=== PATIENT | male | born 1950 | race Two or more races ===

== ENCOUNTER 2018-04-06 11:20 | Emergency (ER) | payer MEDICARE, MEDICAID ==
[~2018-04-06] VITALS: Ht 160 cm; Wt 63.5 kg
[2018-04-06] MEDS ORDERED: SODIUM CHLORIDE 0.9% 1,000 ML IV ONE ×2 (11:35→13:07)
[2018-04-06] MEDS ORDERED: ALBUTEROL SULF 2.5 MG/0.5ML(0.5%) NEB SOLN NEB ONE (11:45)
[2018-04-06] MEDS ORDERED: IPRATROPIUM BROM 0.5 MG/2.5ML INH SOL NEB ONE (11:45)
[2018-04-06 12:18] LABS: Basophils # (auto) 0 uL; Eosinophils # (auto) 0 uL; Lymphocytes # (auto) 0.3 uL; Mean Corpuscular Hgb Conc. 33.3 g/dL (32.0-36.0); Monocytes # (auto) 0.4 uL; Red Cell Distribution Width 15.4 % (11.8-14.3)
[2018-04-06 12:19] LABS: Basophils % (auto) 0.4 % (0.0-2.0); Hematocrit 30.7 % (41.0-53.0); Hemoglobin 10.2 g/dL (13.5-17.5); Lymphocytes % (auto) 4.3 % (10.0-50.0); Mean Corpuscular Hemoglobin 28.4 pg (28.0-32.0); Mean Corpuscular Volume 85.4 fL (80.0-100.0); Monocytes % (auto) 5.5 % (0.0-12.0); Neutrophils # (auto) 6.4 uL; Neutrophils % (auto) 89.8 % (37.0-80.0); Platelet Count (auto) 723 10^3/uL (140-450); Red Blood Cells 3.59 10^6/uL (4.5-5.90); White Blood Cell 7.1 10^3/uL (4.4-10.8)
[2018-04-06 12:31] LABS: Albumin 2.7 g/dL (3.4-5.0); Anion Gap 7 (5-15); Blood Urea Nitrogen 25 mg/dL (7-18); Carbon Dioxide 24 mmol/L (21-32); Chloride 95 mmol/L (98-107); Glucose 158 mg/dL (74-106); Potassium 3.5 mmol/L (3.5-5.1); Sodium 126 mmol/L (136-145)
[2018-04-06 12:38] LABS: Alanine Aminotransferase 61 U/L (16-61); Alkaline Phosphatase 115 U/L (45-117); Aspartate Aminotransferase 96 U/L (15-37); BUN/Creatinine Ratio 22.9; Bilirubin, Total 0.4 mg/dL (0.2-1.0); GFR African American 87 mL/min; GFR Non-African American 72 mL/min; Total Protein 7.6 g/dL (6.4-8.2)
[2018-04-06 13:20] LABS: INR 0.96 (0.9-1.15); Partial Thromboplastin Time 32.9 sec (23.78-33.04); Prothrombin Time 10.3 sec (9.27-12.13)
[2018-04-06 16:05] VITALS: BP 111/71
[2018-04-06 16:23] LABS: Urine Bacteria FEW /hpf (None Seen); Urine Blood Negative /uL (Negative); Urine Hyaline Cast MOD /lpf (0 - 2); Urine Mucus FEW (None Seen); Urine Specific Gravity 1.019 (1.001-1.035); Urine WBC 9 /hpf (0 - 3)
== END 2018-04-06 16:29 | disposition home or self-care (01) ==
LOC: ER 11:20
DX: E87.1 Hypo-osmolality and hyponatremia (principal); J40 Bronchitis, not specified as acute or chronic; I10 Essential (primary) hypertension; Z93.3 Colostomy status
CPT/HCPCS: 36415; 71045; 74176; 80053; 81001; 82962; 83880; 84484; 85025; 85610; 85730; 93005; 94640; 99284; J7611; J7644

== ENCOUNTER 2018-04-27 13:18 | Emergency (ER) | payer MEDICARE, MEDICAID ==
[~2018-04-27] VITALS: Ht 154.9 cm; Wt 59.0 kg
[2018-04-27 13:42] VITALS: BP 104/59
== END 2018-04-27 15:07 | disposition home or self-care (01) ==
LOC: ER 13:21
DX: S30.92XD Unspecified superficial injury of abdominal wall, subsequent encounter (principal); I10 Essential (primary) hypertension; X58.XXXD Exposure to other specified factors, subsequent encounter

== ENCOUNTER 2018-05-07 16:59 | Emergency (ER) | payer MEDICARE, MEDICAID ==
[~2018-05-07] VITALS: Ht 154.9 cm; Wt 57.3 kg
[2018-05-07] MEDS ORDERED: ACETAMINOPHEN 325 MG TAB PO ONE (18:00)
[2018-05-07 19:07] LABS: Urine Bacteria NONE SEEN /hpf (None Seen); Urine Blood Negative /uL (Negative); Urine Hyaline Cast FEW /lpf (0 - 2); Urine Mucus FEW (None Seen); Urine Specific Gravity 1.019 (1.001-1.035); Urine WBC 5 /hpf (0 - 3)
[2018-05-07 19:41] LABS: Basophils # (auto) 0 uL; Basophils % (auto) 0.3 % (0.0-2.0); Eosinophils # (auto) 0 uL; Lymphocytes # (auto) 0.6 uL; Monocytes # (auto) 0.7 uL
[2018-05-07 19:43] LABS: Hematocrit 30.1 % (41.0-53.0); Lymphocytes % (auto) 4.2 % (10.0-50.0); Mean Corpuscular Hemoglobin 26.4 pg (28.0-32.0); Mean Corpuscular Hgb Conc. 33.3 g/dL (32.0-36.0); Mean Corpuscular Volume 79.2 fL (80.0-100.0); Monocytes % (auto) 4.9 % (0.0-12.0); Neutrophils # (auto) 13.1 uL; Neutrophils % (auto) 90.6 % (37.0-80.0); Red Cell Distribution Width 19.1 % (11.8-14.3); White Blood Cell 14.5 10^3/uL (4.4-10.8)
[2018-05-07 19:53] LABS: Platelet Count (auto) 828 10^3/uL (140-450)
[2018-05-07 19:57] LABS: Albumin 2.9 g/dL (3.4-5.0); Anion Gap 11 (5-15); Blood Urea Nitrogen 10 mg/dL (7-18); Calcium 8.6 mg/dL (8.5-10.1); Carbon Dioxide 24 mmol/L (21-32); Chloride 97 mmol/L (98-107); Glucose 180 mg/dL (74-106); Potassium 3.5 mmol/L (3.5-5.1); Sodium 132 mmol/L (136-145)
[2018-05-07 20:00] LABS: Alanine Aminotransferase 20 U/L (16-61); Alkaline Phosphatase 122 U/L (45-117); Aspartate Aminotransferase 13 U/L (15-37); BUN/Creatinine Ratio 10.4; Bilirubin, Total 0.5 mg/dL (0.2-1.0); GFR African American > 60 mL/min; GFR Non-African American > 60 mL/min; Total Protein 7.7 g/dL (6.4-8.2)
[2018-05-07] MEDS ORDERED: metroNIDAZOLE 500MG/100ML 100 ML IV ONE (20:15)
[2018-05-07] MEDS ORDERED: cefTRIAXone 1GM/50ML D5W 50 ML IV ONE (20:15)
[2018-05-07] MEDS ORDERED: SODIUM CHLORIDE 0.9% 1,000 ML IV ONE ×2 (20:15→22:30)
[2018-05-07] MEDS ORDERED: VANCOMYCIN 1GM/250ML 250 ML IV ONE (22:30)
[2018-05-07] MEDS ORDERED: LORazepam 2MG/ML-1ML VIAL ONE (22:50)
[2018-05-07] MEDS ORDERED: LIDOCAINE 2% (LOCAL ANESTH.) PF 5ml SDV ONE ×2 (22:55→23:14)
[2018-05-07] MEDS ORDERED: LIDOCAINE 2%HCL (LOCAL ANESTH.) INJ 10ml MDV IJ ONE ×3 (23:00→23:15)
[2018-05-07] MEDS ORDERED: LORazepam 2MG/ML-1ML VIAL IV ONE (23:00)
[2018-05-08 01:21] VITALS: BP 124/59
== END 2018-05-08 01:38 | disposition home or self-care (01) ==
LOC: ER 17:04
DX: A41.9 Sepsis, unspecified organism (principal); L02.211 Cutaneous abscess of abdominal wall; I95.9 Hypotension, unspecified; R11.2 Nausea with vomiting, unspecified; E11.9 Type 2 diabetes mellitus without complications; I10 Essential (primary) hypertension; Z90.49 Acquired absence of other specified parts of digestive tract
CPT/HCPCS: 36415; 36556; 71045; 74176; 80053; 81001; 83605; 83690; 85025; 87040; 96365; 96367; 96368; 96375; 99285; J0696; J2001; J2060; J3370; J3490; J7030

== ENCOUNTER 2024-10-13 11:42 | Inpatient (IN) | payer MEDICAID, MEDICARE, OTHER ==
[~2024-10-13] VITALS: Ht 154.9 cm; Wt 64.6 kg
[2024-10-13 01:00] VITALS: BP 122/65; PULSE 64; RESP 18; TEMP 97.3; O2SAT 99
--- NOTE | 2024-10-13 12:11 | ECG ---
[facility] Test Date: 2024-10-13 Test Time: 12:05:00 Pat Name: KATIE HAYWARD Department: ER Room: 0274T Gender: M Strickler Attendant: GP : 1950 Requested By: PARVEEN GERARD Order Number: [id number] Reading MD: Isaac Cordova Measurements Intervals [place] Rate: 84 P: 69 LA: 170 QRS: 64 QRSD: 83 T: 60 QT: 353 QTc: 418 Interpretive Statements Sinus rhythm Electronically Signed On 10-17-2024 9:42:29 PDT by Isaac Cordova Please click the below link to view image of tracing.
--- NOTE | 2024-10-13 12:30 | ED.PDOC ---
History of Present Illness HPI Comments 73-year-old no presents to the ER with prior medical history of colon cancer, diabetes, hypertension; surgical history of colonoscopy in the chief complaint of weakness. Patient reports on having general weakness of nausea and vomiting, dizziness, sleepy for the past three days. Denies chills, fever, /D, SOB, CP. No other associated symptoms, modifiers, recent injuries or sick contacts present at this time. Chief Complaint: Abdominal Pain Time Seen by MD: 12:05 Primary Care Provider: GEORGINA Ellis Notes: Nurses Notes, Medications, Allergies Allergies: Coded Allergies: NO KNOWN ALLERGIES (Unverified , 04/06/18) Information Source: Patient Mode of Arrival: Ambulatory Severity: Moderate Timing: Days Duration: Since onset, Days Prehospital treatment: None Past Medical History PAST MEDICAL HISTORY: Cancer (Colon), DM, HTN Surgical History (Other): Colonoscopy Family History Family History: Reviewed,noncontributory to illness, Unknown Social History Smoker: Non-Smoker Alcohol: Denies ETOH Use Drugs: Denies Drug Use Lives In: Home Constitutional: reports: weakness; denies: chills, diaphoresis, fatigue, fever, malaise, sweats, others EENTM: denies: blurred vision, double vision, ear bleeding, ear discharge, ear drainage, ear pain, ear ringing, eye pain, eye redness, hearing loss, mouth pain, mouth swelling, nasal discharge, nose bleeding, nose congestion, nose pain, photophobia, tearing, throat pain, throat swelling, voice changes, others Respiratory: denies: cough, hemoptysis, orthopnea, SOB at rest, shortness of breath, SOB with excertion, stridor, wheezing, others Cardiovascular: denies: chest pain, dizzy spells, diaphoresis, Dyspnea on exertion, edema, irregular heart beat, left arm pain, lightheadedness, palpitations, PND, syncope, others Gastrointestinal: reports: nausea, vomiting; denies: abdomen distended, abdominal pain, blood streaked bowels, constipated, diarrhea, dysphagia, difficulty swallowing, hematemesis, melena, poor appetite, poor fluid intake, re ctal bleeding, rectal pain, others Genitourinary: denies: burning, dysuria, flank pain, frequency, hematuria, incontinence, penile discharge, penile sore, pain, testicle pain, testicle swelling, urgency, others Neurological: reports: dizziness; denies: fainting, headache, left sided numbness, left sided weakness, numbness, paresthesia, pre-existing deficit, right sided numbness, right sided weakness, seizure, speech problems, tingling, tremors, weakness, others Musculoskeletal: denies: back pain, gout, joint pain, joint swelling, muscle pain, muscle stiffness, neck pain, others Integumetry: denies: bruises, change in color, change in hair/nails, dryness, laceration, lesions, lumps, rash, wounds, others Allergic/Immunocompromised: denies: Difficulty Healing, Frequent Infections, Hives, Itching, others Hematologic/Lymphatic: denies: anemia, blood clots, easy bleeding, easy bruising, swollen glands, others Endocrine: denies: excessive hunger, excessive sweating, excessive thirst, excessive urination, flushing, intolerance to cold, intolerance to heat, unexplained weight gain, unexplained weight loss, others Psychiatric: denies: anxiety, bipolar disorder, depression, hopeless, panic disorder, schizophrenia, sleepless, suicidal, others All Other Systems: Reviewed and Negative Physical Exam General Appearance: Moderate Distress, Normal HEENT: Normal ENT Inspection, Pharynx Normal, TMs Normal Neck: Full Range of Motion, Non-Tender, Normal, Normal Inspection Respiratory: Chest Non-Tender, Lungs Clear, No Accessory Muscle Use, No Respiratory Distress, Normal Breath Sounds Cardiovascular: No Edema, No JVD, No Murmur, No Gallop, Normal Peripheral Pulses, Regular Rate/Rhythm Breast Exam: Deferred Gastrointestinal: Diffuse, No Organomegaly, No Pulsatile Mass, Normal Bowel S ounds, Soft Genitalia: Deferred Pelvic: Deferred Rectal: Deferred Extremities: No calf tenderness, Normal capillary refill, Normal inspection, Normal range of motion, Non-tender, No pedal edema Musculoskeletal : Apperance: Normal Neurologic: Alert, applications project manager II-XII nml as Tested, No Motor Deficits, Normal Affect, Normal Mood, No Sensory Deficits Cerebellar Function: Normal Reflexes: Normal Skin: Dry, Normal Color, Warm Peripheral Pulses: 3+ Radial (R), 3+ Radial (L) Lymphatic: No Adenopathy Was a procedure done? Was a procedure done?: No EKG EKG : Pulse Rate (adult): 84 [place]: Normal Cardiac Rhythm: NSR Block: None Hypertrophy: None ST: Normal Differential Dx Considerations may include: Anemia Electrolyte imbalance X-Ray, Labs, Meds, VS Vital Signs Date Time Temp Pulse Resp B/P (MAP) Pulse Ox O2 Delivery O2 Flow Rate FiO2 10/13/24 13:22 97.7 86 16 97 97.7 10/13/24 13:22 86 16 97 Room Air 10/13/24 12:30 84 10/13/24 12:13 98.4 96 18 110/58 (75) 100 98.4 10/13/24 12:05 84 Lab Test 10/13/24 12:49 Range/Units White Blood Count 9.5 4.4-10.8 10^3/uL Red Blood Count 5.14 4.5-5.90 10^6/uL Hemoglobin 15.1 13.5-17.5 g/dL Hematocrit 44.4 41.0-53.0 % Mean Corpuscular Volume 86.4 80.0-100.0 fL Mean Corpuscular Hemoglobin 29.4 28.0-32.0 pg Mean Corpuscular Hemoglobin Concent 34.0 32.0-36.0 g/dL Red Cell Distribution Width 16.7 H 11.8-14.3 % Platelet Count 347 140-450 10^3/uL Mean Platelet Volume 7.9 6.9-10.8 fL Neutrophils (%) (Auto) 80.4 H 37.0-80.0 % Lymphocytes (%) (Auto) 12.2 10.0-50.0 % Monocytes (%) (Auto) 6.8 0.0-12.0 % Eosinophils (%) (Auto) 0.2 0.0-7.0 % Basophils (%) (Auto) 0.4 0.0-2.0 % Neutrophils # (Auto) 7.6 1.6-8.6 10 ^3/uL Lymphocytes # (Auto) 1.2 0.4-5.4 10 ^3/uL Monocytes # (Auto) 0.6 0-1.3 10 ^3/uL Eosinophils # (Auto) 0 0-0.8 10 ^3/uL Basophils # (Auto) 0 0-0.2 10 ^3/uL Nucleated Red Blood Cells 0.0 % Sodium Level 131 L 136-145 mmol/L Potassium Level 5.1 3.5-5.1 mmol/L Chloride Level 103 98-107 mmol/L Carbon Dioxide Level 11 L 20-31 mmol/L Anion Gap 17 H 5-15 Blood Urea Nitrogen 68 H 9-23 mg/dL Creatinine 6.34 H 0.700-1.30 mg/dL Glomerular Filtration Rate Calc 9 >90 mL/min BUN/Creatinine Ratio 10.7 10.0-20.0 Serum Glucose 180 H 74-106 mg/dL Calcium Level 11.0 H 8.7-10.4 mg/dL Patient alert. Complaining of abdominal pain. Vitals stable. Answering all questions. Neutrophils elevated. Possible colitis. Reviewed his history. Explained to the patient. Continue monitoring. Time of 1ST Reevaluation: 12:35 Reevaluation 1ST: Unchanged Patient Education/Counseling: Diagnosis, Treatment, Prognosis Family Education/Counseling: No Family Present SEPSIS Sepsis Screen Date sepsis recognized/suspect: Oct 13, 2024 Time Sepsis recognized/suspect: 1158 Recent Procedure: No On Antibiotic Therapy: No Respiratory Rate >20: No Heart Rate >90: Yes Temp<36 C (96.8 F) or >38.3 C: No SBP <90 or MAP <65 mmHG: No New Acute Mental Status Change: No Is the patient on CPAP, BIPAP,: No Physician Orders Urinalysis (10/13/24 12:30) Ct Ab Pel Wo Con-No Oral Or Iv (10/13/24 13:22) Vital Signs Date Time Temp Pulse Resp B/P (MAP) Pulse Ox O2 Delivery O2 Flow Rate FiO2 10/13/24 13:22 97.7 86 16 97 97.7 10/13/24 13:22 86 16 97 Room Air 10/13/24 12:30 84 10/13/24 12:13 98.4 96 18 110/58 (75) 100 98.4 10/13/24 12:05 84 Laboratory Tests Test 10/13/24 12:49 White Blood Count 9.5 10^3/uL (4.4-10.8) Departure 1 Departure Time of Disposition: 13:21 Impression: Primary Impression: Hypotension Qualified Codes: I95.9 - Hypotension, unspecified Additional Impressions: Acute abdominal pain Autonomic disorder Disposition: ADMITTED INPATIENT Admit to: Med Surg Condition: Guarded Critical Care Note Critical Care Time?: No Stability Stability form required: No Heart Score Heart Score: Heart Score Response (Comments) Value History N/A 0 EKG N/A 0 Age N/A 0 Risk Factors N/A 0 Troponin N/A 0 Total 0 I personally scribed for PARVEEN GERARD MD ([email or web address]) on 10/13/24 at 12:30. Electronically submitted by Chris Emanuel ([email or web address]). PARVEEN GERARD MD Oct 13, 2024 12:30
[2024-10-13 13:02] LABS: Hematocrit 44.4 % (41.0-53.0); Hemoglobin 15.1 g/dL (13.5-17.5); Mean Corpuscular Hemoglobin 29.4 pg (28.0-32.0); Mean Corpuscular Volume 86.4 fL (80.0-100.0); Nucleated Red Blood Cells % 0.0 %
[2024-10-13 13:16] LABS: Chloride 103 mmol/L (98-107); Potassium 5.1 mmol/L (3.5-5.1)
[2024-10-13 13:17] LABS: Anion Gap 17 (5-15)
[2024-10-13 13:20] LABS: Calcium 11.0 mg/dL (8.7-10.4); Carbon Dioxide 11 mmol/L (20-31); Sodium 131 mmol/L (136-145)
[2024-10-13 13:22] LABS: BUN/Creatinine Ratio 10.7 (10.0-20.0)
[2024-10-13 13:24] LABS: Blood Urea Nitrogen 68 mg/dL (9-23); Glucose 180 mg/dL (74-106)
[2024-10-13] MEDS: SODIUM CHLORIDE 0.9% 1,000 ML IV ONE ×2 (13:38→13:40)
--- NOTE | 2024-10-13 15:27 | DVH ---
EXAM: CT Abdomen and Pelvis Without Intravenous Contrast CLINICAL INDICATION: colitis TECHNIQUE: Axial computed tomography images of the abdomen and pelvis without intravenous contrast. This CT exam was performed using one or more of the following dose reduction techniques: automated exposure control, adjustment of the mA and/or kV according to patient size, and/or use of iterative r econstruction technique. CONTRAST: COMPARISON: No relevant prior studies available. FINDINGS: LUNG BASES: Unremarkable. No mass. No consolidation. MEDIASTINUM: Small esophageal hiatal hernia. ABDOMEN: LIVER: Fatty infiltration of the liver. GALLBLADDER AND BILE DUCTS: Unremarkable. No calcified stones. No ductal dilation. PANCREAS: Unremarkable. No ductal dilation. SPLEEN: Unremarkable. No splenomegaly. ADRENALS: Unremarkable. No mass. KIDNEYS AND URETERS: Left renal cysts. No obstructing stones. No hydronephrosis. STOMACH AND BOWEL: Fecal retention in the colon consistent with constipation. Left lower abdominal colostomy with peristromal herniation. No obstruction. No mucosal thickening. PELVIS: APPENDIX: No findings to suggest acute appendicitis. BLADDER: Unremarkable. No stones. REPRODUCTIVE: Unremarkable as visualized. ABDOMEN and PELVIS: INTRAPERITONEAL SPACE: Unremarkable. No free air. No significant fluid collection. BONES/JOINTS: No acute fracture. No dislocation. SOFT TISSUES: Right inguinal hernia. VASCULATURE: Scattered calcified atherosclerotic disease of aorta. No abdominal aortic aneurysm. LYMPH NODES: Unremarkable. No enlarged lymph nodes. OTHER FINDINGS: Comparison None. . IMPRESSION: 1. Small esophageal hiatal hernia. 2. Fecal retention in the colon consistent with constipation. 3. Left lower abdominal colostomy with peristromal herniation. 4. Right inguinal hernia. HS:Y
[2024-10-13 15:50] LABS: Urine Budding Yeast OCCASIONAL /hpf (None Seen); Urine Protein, UAD 2+ (Negative)
--- NOTE | 2024-10-13 18:40 | DVHHP2 ---
History of Present Illness Reason for Visit: Generalized weakness History of Present Illness The patient is a 73-year-old male with past medical history of colon cancer, diabetes mellitus, and hypertension who presented to [facility] ED with complaint of generalized weakness. Patient reports that he has been exper iencing generalized weakness associated with abdominal pain, dizziness, nausea, vomiting, sleepy for the past 3 days, getting worse today that prompted this visit. Patient was seen and evaluated in the ED, laboratory data shows WBC 9.5, platelets 347, sodium 131, potassium 5.1, BUN 68, creatinine 6.34, glucose 180, calcium 11.0, urinalysis positive for urinary tract infection, blood pressure 102/52, heart rate 78, temperature 98.6 F, O2 saturation 98% on room air. Abdomen/pelvis CT revealing small esophageal hernia hernia, fecal retention in the colon consistent with constipation, left lower abdominal colostomy with peristomal herniation, right inguinal hernia hernia. Patient was started on IV antibiotic regimen Rocephin, please see medication orders section in the computer. On my assessment, patient denied chest pain, no headache, no dizziness, no diaphoresis, no shortness of breath, no abdominal pain, no diarrhea, no nausea or vomiting at this moment, no fever, no chills. Patient was admitted for further evaluation and medical management. Past Medical History Cancer (Colon), DM, HTN Past Surgical History Colonoscopy Family History Reviewed, noncontributory to the management of this case. Past Social History The patient lives at home, denies smoking, alcohol or illicit drugs abuse. Review of Systems Constitutional: Yes: Weakness; No: Fever, Chills, Sweats, Malaise, Other Eyes: No: Pain, Vision change, Conjunctivae inflammation, Eyelid inflammation, Other, Redness ENT: No: Ear pain, Ear discharge, Nose pain, Nose discharge, Nose congestion, Mouth pain, Mouth swelling, Throat pain, Throat swelling, Other Respiratory: No: Cough, Dry, Shortness of breath, SOB with excertion, Wheezing, Hemoptysis, Pleuritic Pain, Sputum, Wheezing, Other Cardiovascular: No: Chest Pain, Palpitations, Orthopnea, Paroxysmal Noc. Dyspnea, Edema, Lt Headedness, Other Gastrointestinal: Nausea, Vomiting, Abdominal Pain, Other (Colostomy bag); No: Diarrhea, Constipation, Melena, Hematochezia Genitourinary: No Dysuria, No Frequency, No Incontinence, No Hematuria, No Retention, No Other Musculoskeletal: No: other, neck pain, shoulder pain, arm pain, back pain, hand pain, leg pain, foot pain Skin: Other (Ostomy); No: Rash, Lesions, Jaundice, Bruising Neurological: Other (Dizziness); No: Weakness, Numbness, Incoordination, Change in speech, Confusion, Seizures Allergies: Coded Allergies: NO KNOWN ALLERGIES (Unverified , 04/06/18) Exam Vital Signs Vital Signs Date Time Temp Pulse Resp B/P (MAP) Pulse Ox O2 Delivery O2 Flow Rate FiO2 10/13/24 17:50 97.4 66 20 129/51 (77) 97 97.4 10/13/24 13:22 Room Air General Appearance: Alert, Oriented X3, Cooperative, No acute distress HEENT: Atraumatic, PERRLA, EOMI, Mucous membr. moist/pink Respiratory: Normal air movement Cardiovascular: Regular rate, Normal S1, Normal S2, No murmurs Abdominal: Normal bowel sounds, Soft, No tenderness, No hepatospenomegaly, No masses Extremities: No clubbing, No cyanosis, No edema, Normal pulses, No tenderness/swelling Skin: No rashes, No breakdown, No significant lesion Neuro: Normal speech, Normal tone, Sensation intact, Cranial nerves 3-12 NL, Reflexes 2+, Other (Generalized weakness) Psych/Mental Status: Mental status NL, Mood NL Labs/Xrays Labs Test 10/13/24 15:13 10/13/24 12:49 Range/Units Urine Color Yellow Yellow Urine Clarity Turbid H Clear Urine pH 5.0 5.0-9.0 Urine Specific [place] 1.023 1.001-1.035 Urine Protein 2+ H Negative Urine Ketones Negative Negative Urine Blood Trace H Negative /uL Urine Nitrite Negative Negative Urine Bilirubin Negative Negative Urine Urobilinogen Normal Negative mg/dL Urine Leukocyte Esterase 2+ Negative /uL Urine RBC 2 0 - 3 /hpf Urine Microscopic WBC 17 H 0-3 /HPF Urine Squamous Epithelial Cells Few <5 /hpf Urine Bacteria Few H None Seen /hpf Urine Hyaline Casts Many 0 - 2 /lpf Urine Mucus Few None Seen Urine Yeast (Budding) Occasional None Seen /hpf Urine Glucose Normal Normal mg/dL White Blood Count 9.5 4.4-10.8 10^3/uL Red Blood Count 5.14 4.5-5.90 10^6/uL Hemoglobin 15.1 13.5-17.5 g/dL Hematocrit 44.4 41.0-53.0 % Mean Corpuscular Volume 86.4 80.0-100.0 fL Mean Corpuscular Hemoglobin 29.4 28.0-32.0 pg Mean Corpuscular Hemoglobin Concent 34.0 32.0-36.0 g/dL Red Cell Distribution Width 16.7 H 11.8-14.3 % Platelet Count 347 140-450 10^3/uL Mean Platelet Volume 7.9 6.9-10.8 fL Neutrophils (%) (Auto) 80.4 H 37.0-80.0 % Lymphocytes (%) (Auto) 12.2 10.0-50.0 % Monocytes (%) (Auto) 6.8 0.0-12.0 % Eosinophils (%) (Auto) 0.2 0.0-7.0 % Basophils (%) (Auto) 0.4 0.0-2.0 % Neutrophils # (Auto) 7.6 1.6-8.6 10 ^3/uL Lymphocytes # (Auto) 1.2 0.4-5.4 10 ^3/uL Monocytes # (Auto) 0.6 0-1.3 10 ^3/uL Eosinophils # (Auto) 0 0-0.8 10 ^3/uL Basophils # (Auto) 0 0-0.2 10 ^3/uL Nucleated Red Blood Cells 0.0 % Sodium Level 131 L 136-145 mmol/L Potassium Level 5.1 3.5-5.1 mmol/L Chloride Level 103 98-107 mmol/L Carbon Dioxide Level 11 L 20-31 mmol/L Anion Gap 17 H 5-15 Blood Urea Nitrogen 68 H 9-23 mg/dL Creatinine 6.34 H 0.700-1.30 mg/dL Glomerular Filtration Rate Calc 9 >90 mL/min BUN/Creatinine Ratio 10.7 10.0-20.0 Serum Glucose 180 H 74-106 mg/dL Calcium Level 11.0 H 8.7-10.4 mg/dL PATIENT: KATIE HAYWARD SRACCT: [id number] UNIT: [id number] : 1950 LOC: ER ROOM / BED: / AGE / SEX: 73 / M ADM STATUS: REG ER SERVICE 1322 ORDERING PHYSICIAN: PARVEEN GERARD MD PROCEDURE(s): ABPL - CT AB PEL WO CON-NO ORAL OR IV REASON: colitis ORDER NUMBER(s): [id number], ACCESSION NUMBER(s): [id number] EXAM: CT Abdomen and Pelvis Without Intravenous Contrast CLINICAL INDICATION: colitis TECHNIQUE: Axial computed tomography images of the abdomen and pelvis without intravenous contrast. This CT exam was performed using one or more of the following dose reduction techniques: automated exposure control, adjustment of the mA and/or kV according to patient size, and/or use of iterative reconstruction technique. CONTRAST: COMPARISON: No relevant prior studies available. FINDINGS: LUNG BASES: Unremarkable. No mass. No consolidation. MEDIASTINUM: Small esophageal hiatal hernia. ABDOMEN: LIVER: Fatty infiltration of the liver. GALLBLADDER AND BILE DUCTS: Unremarkable. No calcified stones. No ductal dilation. PANCREAS: Unremarkable. No ductal dilation. SPLEEN: Unremarkable. No splenomegaly. ADRENALS: Unremarkable. No mass. KIDNEYS AND URETERS: Left renal cysts. No obstructing stones. No hydronephrosis. STOMACH AND BOWEL: Fecal retention in the colon consistent with constipation. Left lower abdominal colostomy with peristromal herniation. No obstruction. No mucosal thickening. PELVIS: APPENDIX: No findings to suggest acute appendicitis. BLADDER: Unremarkable. No stones. REPRODUCTIVE: Unremarkable as visualized. ABDOMEN and PELVIS: INTRAPERITONEAL SPACE: Unremarkable. No free air. No significant fluid collection. BONES/JOINTS: No acute fracture. No dislocation. SOFT TISSUES: Right inguinal hernia. VASCULATURE: Scattered calcified atherosclerotic disease of aorta. No abdominal aortic aneurysm. LYMPH NODES: Unremarkable. No enlarged lymph nodes. OTHER FINDINGS: Comparison None. . IMPRESSION: 1. Small esophageal hiatal hernia. 2. Fecal retention in the colon consistent with constipation. 3. Left lower abdominal colostomy with peristromal herniation. 4. Right inguinal hernia. Assessment/Plan Assessment/Plan Generalized weakness Hypotension, unspecified Autonomic disorder Acute renal failure Acute abdominal pain Plan 1. Admit to telemetry unit 2. Breathing treatment 3. Pain control management 4. Management of fluids and electrolytes 5. Consultation for Nephrology 6. Diagnostic tests abdomen/pelvis CT 7. DVT prophylaxis-on SCDs 8. Repeat labs CBC, CMP in a.m. 9. Continue with current medical management 10. Treatment plan discussed with patient and RN. Patient verbalized understanding. Plan discussed with: Patient, Other (RN) My Orders Orders - STEPHANIA ACUNA DNP Procedure Category Date Status Time *Dr. Christopher Tom CONS 10/13/24 Transmitted -[place] 18:32 Atorvastatin (Lipitor) PHA 10/13/24 Transmitted 22:00 Aspirin Tablet PHA 10/14/24 Transmitted 10:00 Famotidine Injection PHA 10/13/24 Transmitted (Pepcid Injection) 22:00 Consistent DIET 10/14/24 Transmitted Carb(Ccho)Diabetes Breakfast Donepezil Tablet PHA 10/13/24 Transmitted (Aricept Tablet) 22:00 Memantine Tablet PHA 10/14/24 Transmitted (Namenda Tablet) 10:00 Glucose Blood PHA 10/13/24 Transmitted (Accu-Chek Comfort 22:00 Bedtime Insulin Scale PHA 10/13/24 Transmitted 22:00 Moderate Insulin Ss PHA 10/14/24 Transmitted 07:00 Dextrose 50% Syringe PHA 10/13/24 Transmitted 18:45 Admit ADMIT 10/13/24 Transmitted 18:32 Allergies MAGNOLIA 10/13/24 Transmitted 18:32 Code Status CODE 10/13/24 Transmitted 18:32 Sodium Chloride Lock PHA 10/13/24 Transmitted (Saline Lock Ns) 22:00 Oxygen Per Hour RT 10/13/24 Transmitted 18:32 Hydrocodone-Acet PHA 10/13/24 Transmitted 5/325mg Tab ([place] 18:45 Ondansetron Hcl PHA 10/13/24 Transmitted (Zofran) 18:45 Docusate Sodium PHA 10/13/24 Transmitted Capsule (Colace 18:45 Complete Blood Count LAB 10/14/24 Verified 04:00 Comprehensive LAB 10/14/24 Verified Metabolic Panel 04:00 Condition: Serious MAGNOLIA 10/13/24 Transmitted 18:32 Acetaminophen Tablet PHA 10/13/24 Transmitted (Tylenol Tablet) 18:45 Bedrest With Bathroom MAGNOLIA 10/13/24 Transmitted Privileg 18:32 Sequential MAGNOLIA 10/13/24 Transmitted Compression Device Nitroglycerin PHA 10/13/24 Transmitted Sublingual (Ntrostat 18:45 Morphine Sulfate PHA 10/13/24 Transmitted Injection 18:45 Stat Ekg For Chest MAGNOLIA 10/13/24 Transmitted Pain 18:32 Notify Of Changes MAGNOLIA 10/13/24 Transmitted From Base 18:32 Pre Billing Specialist For MAGNOLIA 10/13/24 Transmitted 24 Hours 18:32 Emergency Dysrhythmia MAGNOLIA 10/13/24 Transmitted Protocol 18:32 Rhythm Strips Once MAGNOLIA 10/13/24 Transmitted Every Shift 18:32 Oxygen By Nasal RT 10/13/24 Transmitted Cannula 18:32 Problem List: (1) Generalized weakness (2) Hypotension, unspecified (3) Acute renal failure (4) Autonomic disorder (5) Acute abdominal pain Date of Service: Oct 13, 2024 Billing Provider: STEPHANIA ACUNA DNP Common Visit Codes: [id number] INP/OBS CARE (HIGH) STEPHANIA ACUNA DNP Oct 13, 2024 18:40
[2024-10-13] MEDS ORDERED: ACETAMINOPHEN 325 MG TAB PO PRN (18:45)
[2024-10-13] MEDS ORDERED: DOCUSATE SOD 100 MG CAP PO PRN (18:45)
[2024-10-13] MEDS ORDERED: NITROGLYCERIN 0.4 MG SL TAB SL PRN (18:45)
[2024-10-13] MEDS ORDERED: DEXTROSE (50%) 50ML SYRG IV PRN (18:45)
[2024-10-13] MEDS ORDERED: HYDROcodone-ACET 5/325MG TAB PO PRN (18:45)
[2024-10-13] MEDS ORDERED: MORPHINE SULFATE INJ 2 MG/ml SYRG IV PRN (18:45)
[2024-10-13] MEDS: FAMOTIDINE (10MG/ML) 2ML VL IV SCH (22:00)
[2024-10-13] MEDS: SODIUM CHLOR 0.9% PF (SALINE LOCK) 10ML VIAL/SYR IV SCH (22:51)
[2024-10-13] MEDS: DONEPEZIL HYDROCHLORIDE 5 MG TAB PO SCH (23:02)
[2024-10-13] MEDS: ATORVASTATIN 20 MG TAB PO SCH (23:02)
[2024-10-13] MEDS: ACCU-CHEK COMFORT CURVE STRIP VI SCH (23:02)
[2024-10-13] MEDS: InsuLIN REG 1unit/0.01ml Soln (100units/ml) SC SCH (23:10)
[2024-10-13 23:49] VITALS: BP 122/61; PULSE 64; RESP 18; TEMP 97.3; O2SAT 99
[2024-10-14] VITALS (7 sets, daily range): BP systolic 104–120; BP diastolic 62–80; PULSE 71–95; RESP 17–18; TEMP 97–98.6; O2SAT 98–99
[2024-10-14] MEDS ORDERED: ATOR-47 PO (01:01)
[2024-10-14] MEDS ORDERED: SIMV20TA20 PO (01:01)
[2024-10-14] MEDS ORDERED: FAMO-12 PO (01:01)
[2024-10-14] MEDS ORDERED: DONE1TAB88 PO (01:01)
[2024-10-14] MEDS ORDERED: MEMA1TAB5 PO (01:02)
[2024-10-14] MEDS ORDERED: MET25T PO (01:02)
[2024-10-14] MEDS ORDERED: SUCR1TAB PO (01:02)
[2024-10-14] MEDS ORDERED: CLOP75TA70 PO (01:02)
[2024-10-14] MEDS ORDERED: PANT40T PO (01:02)
[2024-10-14] MEDS ORDERED: METF-372 PO (01:02)
[2024-10-14] MEDS: InsuLIN REG 1unit/0.01ml Soln (100units/ml) SC SCH (06:03)
[2024-10-14 08:17] LABS: Hematocrit 40.3 % (41.0-53.0); Hemoglobin 13.9 g/dL (13.5-17.5); Mean Corpuscular Hemoglobin 29.5 pg (28.0-32.0); Mean Corpuscular Volume 85.4 fL (80.0-100.0); Nucleated Red Blood Cells % 0.1 %
[2024-10-14 08:35] LABS: Alanine Aminotransferase 22 U/L (7-40); Anion Gap 16 (5-15); BUN/Creatinine Ratio 13.4 (10.0-20.0); Bilirubin, Total 0.8 mg/dL (0.2-1.0); Calcium 10.4 mg/dL (8.7-10.4); Chloride 104 mmol/L (98-107); Potassium 4.0 mmol/L (3.5-5.1); Total Protein 7.4 g/dL (5.7-8.2)
[2024-10-14 08:47] LABS: Albumin 4.8 g/dL (3.2-4.8); Alkaline Phosphatase 117 U/L (46-116); Blood Urea Nitrogen 76 mg/dL (9-23); Carbon Dioxide 12 mmol/L (20-31); Glucose 122 mg/dL (74-106); Sodium 132 mmol/L (136-145)
[2024-10-14 09:41] LABS: Protein, Urine 207.9 mg/dL (1-14)
[2024-10-14] MEDS: cefTRIAXone 1GM/50ML D5W 50 ML IV SCH (09:52)
[2024-10-14] MEDS: MEMANTINE HCL 5 MG TAB PO SCH (10:00)
--- NOTE | 2024-10-14 11:02 | DVHCONRES ---
Date Seen: Oct 14, 2024 Resident Creating Document: QUIN DOWNING RESIDENT Referring Physician ARMAND LUIS History of Present Illness This is a 73-year-old male with past medical history of diabetes mellitus for the past 6 years on metformin, hypotension on metoprolol and lisinopril, dyslipidemia, colon cancer status post colostomy 7 years back after chemotherapy failed, follows [facility] who presented to the ER with a chief complaint of generalized weakness, intractable nausea and vomiting starting Sunday. Patient reports that he started to experience nausea, was unable to hold any fluids or any solid diet starting 10/11 and he was incidentally home with everything out. Denies any fever or chills. Denies any sick contacts or recent travel history. Patient lives with her daughter and her who are fine , associated symptoms include weakness, dizziness but patient denies any abdominal pain, diarrhea or constipation. He has been having black stools in his colostomy bag. On arrival to the ER, patient was afebrile, normotensive, room air CBC is unremarkable, BNP shows potassium is 5, BUN/creatinine 68/6.34 Nephrology consulted for possible NEGRITA superimposed on CKD. Patient does not have history of CKD and does not follow post doctoral researcher. PCP is Dr. Barry Patient follows with neurologist Dr. Cardenas Patient seen and examined at the bedside. Renal ultrasound pending. Allergies: Coded Allergies: NO KNOWN ALLERGIES (Unverified , 04/06/18) Home Meds Reported Medications Clopidogrel Bisulfate (CLOPIDOGREL) 75 Mg Tab, 1 TAB PO DAILY 10/14/24 Sucralfate (Sucralfate) 1 Gm Tab, 1 TAB PO 10/14/24 Metformin Hydrochloride (Metformin Hcl) 1,000 Mg Tab, 1 TAB PO BID 10/14/24 Pantoprazole Sodium Sesquihydr (Pantoprazole Sodium) 40 Mg Tab, 1 TAB PO BID 10/14/24 Metoprolol Tartrate (Lopressor) 25 Mg Tb, 1 TAB PO BID 10/14/24 Memantine Hydrochloride (Memantine HCl) 10 Mg Tab, 1 TAB PO BID 10/14/24 Donepezil Hydrochloride (DONEPEZIL HCL) 10 Mg Tab, 1 TAB PO 10/14/24 Simvastatin (Simvastatin) 20 Mg Tab, 1 TAB PO 10/14/24 Famotidine (Famotidine) 20 Mg Tab, 1 TAB PO BID 10/14/24 Atorvastatin Calcium (ATORVASTATIN CALCIUM) 80 Mg Tab, 1 TAB PO DAILY 10/14/24 Current Medications Current Medications Medications (Trade) Dose Ordered Sig/Lilo Route PRN Reason Start Time Stop Time Status Last Admin Atorvastatin Calcium (Lipitor) 20 mg HS PO 10/13/24 22:00 10/13/24 23:02 Aspirin 81 mg DAILY PO 10/14/24 10:00 10/14/24 10:01 Famotidine (Pepcid Injection) 20 mg Q2D IV 10/13/24 22:00 Donepezil HCl (Aricept Tablet) 10 mg HS PO 10/13/24 22:00 10/13/24 23:02 Memantine (Namenda Tablet) 10 mg DAILY PO 10/14/24 10:00 10/14/24 10:00 Diagnostic Test (Pha) (Accu-Chek Comfort Curve T) 1 strip ACHS 10/13/24 22:00 10/14/24 06:03 Insulin Human Regular (InsuLIN R) HS SC 10/13/24 22:00 Insulin Human Regular (InsuLIN R) AC SC 10/14/24 07:00 Dextrose 50 ml UD PRN IV Blood Sugar LESS THAN 60 10/13/24 18:45 Sodium Chloride (Saline Lock Ns) 10 ml Q8HR IV 10/13/24 22:00 10/14/24 06:01 Acetaminophen/ Hydrocodone Bitart ([place] 5/325MG Tab) 1 tab Q4HP PRN PO MODERATE PAIN (4-6 PAIN SCALE) 10/13/24 18:45 Ondansetron HCl (Zofran) 4 mg Q4HP PRN IV NAUSEA / VOMITING 10/13/24 18:45 Docusate Sodium (Colace Capsule) 100 mg BIDPRN PRN PO FOR CONSTIPATION 10/13/24 18:45 Acetaminophen (Tylenol Tablet) 650 mg Q6HP PRN PO PAIN SCALE 1-3 OR TEMP>100.4 10/13/24 18:45 Nitroglycerin (Ntrostat Sublingual) 0.4 mg Q5MINP PRN SL FOR CHEST PAIN 10/13/24 18:45 Morphine Sulfate 2 mg Q30M PRN IV FOR CHEST PAIN 10/13/24 18:45 Ceftriaxone Sodium 50 ml @ 100 mls/hr DAILY@09 IV 10/14/24 09:00 10/14/24 09:52 Review of Systems Eyes: No Pain, No Vision change, No Conjunctivae inflammation, No Eyelid inflammation, No Other, No Redness ENT: No Ear pain, No Ear discharge, No Nose pain, No Nose discharge, No Nose congestion, No Mouth pain, No Mouth swelling, No Throat pain, No Throat swelling, No Other Cardiovascular: No Chest Pain, No Palpitations, No Orthopnea, No PND, No Edema, No Lt Headedness, No Other Respiratory: No Cough, No Dry, No Shortness of breath, No SOB with exertion, No Wheezing, No Hemoptysis, No Pleuritic Pain, No Sputum, No Other Gastrointestinal: Reports nausea vomiting, No Abdominal Pain, No Diarrhea, No Constipation, No Melena, No Hematochezia, No Other reports black stool Genitourinary: No Dysuria, No Frequency, No Incontinence, No Hematuria, No Retention, No Other Musculoskeletal: No other, No neck pain, No shoulder pain, No arm pain, No back pain, No hand pain, No leg pain, No foot pain Skin: No Rash, No Lesions, No Jaundice, No Bruising, No Other Vital Signs Vital Signs Date Time Temp Pulse Resp B/P (MAP) Pulse Ox O2 Delivery O2 Flow Rate FiO2 10/14/24 09:00 97.5 76 18 120/62 (81) 98 97.5 10/13/24 23:49 Room Air* 0 21 Physical Exam Male patient lying comfortably in the bed, well conversational, no acute distr ess General: Well-built, afebrile, palor, mucosae are moist Cardiovascular: Regular S1 and S2. No murmurs, gallops or rubs. No JVD elevation. No pedal edema Respiratory: Normal B/L air entry on room air. Clear lung sounds on auscultation Abdomen: Soft, nontender, nondistended, normoactive bowel sounds, no rebound tenderness, no organomegaly, no masses Genitourinary: Deferred MSK/skin: Mobilizes 4 limbs. Skin is dry and warm Neurological: No motor, no sensitive deficits, normal speech. Pupils are i socoric and reactive. Psych/Mental Status: A/Ox3 Labs/Diagnostic Data Labs Test 10/14/24 10:45 10/14/24 08:04 10/14/24 06:02 10/13/24 15:13 Range/Units White Blood Count 7.0 # 4.4-10.8 10^3/uL Red Blood Count 4.72 4.5-5.90 10^6/uL Hemoglobin 13.9 13.5-17.5 g/dL Hematocrit 40.3 L 41.0-53.0 % Mean Corpuscular Volume 85.4 80.0-100.0 fL Mean Corpuscular Hemoglobin 29.5 28.0-32.0 pg Mean Corpuscular Hemoglobin Concent 34.5 32.0-36.0 g/dL Red Cell Distribution Width 16.5 H 11.8-14.3 % Platelet Count 266 140-450 10^3/uL Mean Platelet Volume 7.6 6.9-10.8 fL Neutrophils (%) (Auto) 68.2 37.0-80.0 % Lymphocytes (%) (Auto) 17.6 10.0-50.0 % Monocytes (%) (Auto) 12.2 H 0.0-12.0 % Eosinophils (%) (Auto) 1.5 0.0-7.0 % Basophils (%) (Auto) 0.5 0.0-2.0 % Neutrophils # (Auto) 4.7 1.6-8.6 10 ^3/uL Lymphocytes # (Auto) 1.2 0.4-5.4 10 ^3/uL Monocytes # (Auto) 0.8 0-1.3 10 ^3/uL Eosinophils # (Auto) 0.1 0-0.8 10 ^3/uL Basophils # (Auto) 0 0-0.2 10 ^3/uL Nucleated Red Blood Cells 0.1 % Sodium Level 132 L 136-145 mmol/L Potassium Level 4.0 3.5-5.1 mmol/L Chloride Level 104 98-107 mmol/L Carbon Dioxide Level 12 L 20-31 mmol/L Anion Gap 16 H 5-15 Blood Urea Nitrogen 76 H 9-23 mg/dL Creatinine 5.68 H 0.700-1.30 mg/dL Glomerular Filtration Rate Calc 10 >90 mL/min BUN/Creatinine Ratio 13.4 10.0-20.0 Serum Glucose 122 H 74-106 mg/dL Calcium Level 10.4 8.7-10.4 mg/dL Magnesium Level 1.7 1.6-2.6 mg/dL Total Bilirubin 0.8 0.2-1.0 mg/dL Aspartate Amino Transferase (AST) 12 L 13-40 U/L Alanine Aminotransferase (ALT) 22 7-40 U/L Alkaline Phosphatase 117 H 46-116 U/L Total Protein 7.4 5.7-8.2 g/dL Albumin 4.8 3.2-4.8 g/dL Vitamin B12 Level 363 211-911 pg/mL Vitamin D 25-Hydroxy 51.4 30.0-100 ng/mL Parathyroid Hormone (Intact) 11.5 L 18.4-80.1 pg/mL POC Glucose 121 H 70-106 mg/dl Urine Color Yellow Yellow Urine Clarity Turbid H Clear Urine pH 5.0 5.0-9.0 Urine Specific [place] 1.023 1.001-1.035 Urine Protein 2+ H Negative Urine Ketones Negative Negative Urine Blood Trace H Negative /uL Urine Nitrite Negative Negative Urine Bilirubin Negative Negative Urine Urobilinogen Normal Negative mg/dL Urine Leukocyte Esterase 2+ Negative /uL Urine RBC 2 0 - 3 /hpf Urine Microscopic WBC 17 H 0-3 /HPF Urine Squamous Epithelial Cells Few <5 /hpf Urine Bacteria Few H None Seen /hpf Urine Hyaline Casts Many 0 - 2 /lpf Urine Mucus Few None Seen Urine Yeast (Budding) Occasional None Seen /hpf Urine Creatinine 213.96 H 30.0-125.0 mg/dL Urine Protein/Creatinine Ratio 0.97 Urine Sodium 21 L 40-220 mmol/L Urine Glucose Normal Normal mg/dL Urine Total Protein 207.9 H 1-14 mg/dL Assessment Acute kidney injury likely prerenal-FENA 0.5% Intractable nausea and vomiting Acute cystitis Likely gastroenteritis Diabetes mellitus type 2 for the past 6 years on metformin Hypertension Dyslipidemia Colon cancer status post colostomy 7 years back follows [facility] BUN/creatinine 68/6.34 Plan: Given the depleted volume status, FENA 0.5, we recommend IV hydration with LR at this time. Follow up with lactic acid, BNP. IV ceftriaxone for acute cystitis COVID/influenza testing pending Follow up with kidney ultrasound, urine bacterial culture Recommend resuming clear liquid diet, advanced as tolerated We will continue to follow up Plan discussed with patient, nurse Jordyn at bedside in which all questions have been answered Discussed with Plan discussed with: Patient, Other (nurse) QUIN DOWNING RESIDENT Oct 14, 2024 11:01
--- NOTE | 2024-10-14 11:18 | DVH ---
CHEST RADIOGRAPH Indication: congestion Technique: Single frontal view of the chest was obtained Comparison: None FINDINGS: Lines and Tubes: None Lungs: No focal consolidation. Pleura: No effusion. No pneumothorax. Cardiomediastinal contours: Unremarkable Bones: No acute osseous abnormality. IMPRESSION: No acute cardiopulmonary disease.
[2024-10-14 11:34] LABS: COVID19 ANTIGEN SOFIA FIA NEGATIVE (NEGATIVE)
--- NOTE | 2024-10-14 12:32 | DVH ---
INDICATION: L CVA tenderness, echogenic kidneys TECHNIQUE: Multiple real-time sonographic images of the kidneys and bladder were obtained. COMPARISON: None FINDINGS: The right kidney measures 11 cm in length, which is normal in size. There is normal echogen icity of the right kidney. No hydronephrosis. The left kidney measures 12 cm in length, which is normal in size. There is normal echogenicity of th e left kidney. No hydronephrosis. 5cm left renal cyst. No large intraluminal masses are seen in the bladder. IMPRESSION: 1. Normal sonographic appearance of the kidneys. No hydronephrosis.
[2024-10-14] MEDS: LACTATED RINGER'S 1,000 ML IV SCH (13:42)
--- NOTE | 2024-10-14 15:38 | DVHPN2 ---
Subjective Patient denies any symptoms at this time Reviewed: Care Plan, H&P, Labs, Medications Changes from previous H/P or p: No Changes General: Per HPI Eyes: No Pain, No Vision change, No Conjunctivae inflammation, No Eyelid inflammation, No Other, No Redness ENT: No Ear pain, No Ear discharge, No Nose pain, No Nose discharge, No Nose congestion, No Mouth pain, No Mouth swelling, No Throat pain, No Throat swelling, No Other Cardiovascular: No Chest Pain, No Palpitations, No Orthopnea, No Paroxysmal Noc. Dyspnea, No Edema, No Lt Headedness, No Other Respiratory: No Cough, No Dry, No Shortness of breath, No SOB with excertion, No Wheezing, No Hemoptysis, No Pleuritic Pain, No Sputum, No Other Gastrointestinal: Nausea, Vomiting, Abdominal Pain; No Diarrhea, No Constipation, No Melena, No Hematochezia; Other (Colostomy bag) Genitourinary: No Dysuria, No Frequency, No Incontinence, No Hematuria, No Retention, No Other Musculoskeletal: No other, No neck pain, No shoulder pain, No arm pain, No back pain, No hand pain, No leg pain, No foot pain Skin: No Rash, No Lesions, No Jaundice, No Bruising; Other (Ostomy) Objective Vitals Vital Signs Date Time Temp Pulse Resp B/P (MAP) Pulse Ox O2 Delivery O2 Flow Rate FiO2 10/14/24 13:00 98.6 88 18 115/75 (88) 98 98.6 10/14/24 08:00 Room Air* 0 21 Intake/Output Intake and Output 10/14/24 07:00 Intake Total 1200 ml Balance 1200 ml Intake Oral 200 ml IV Total 1000 ml General Appearance: Alert, Oriented X3, Cooperative, No acute distress HEENT: Atraumatic, PERRLA Cardiovascular: Normal S1, Normal S2 Abdomen: Normal bowel sounds, Soft, No tenderness Musculoskeletal: Normal sensory function, Normal motor function Neuro: Normal gait, Normal speech Skin: Dry, Intact Psych/Mental Status: Mental status NL, Mood NL Medications Current Medications Medications Dose Ordered Sig/Lilo Route Start Time Stop Time Status Last Admin Dose Admin Atorvastatin Calcium 20 mg HS PO 10/13/24 22:00 10/13/24 23:02 20 MG Aspirin 81 mg DAILY PO 10/14/24 10:00 10/14/24 10:01 81 MG Famotidine 20 mg Q2D IV 10/13/24 22:00 Donepezil HCl 10 mg HS PO 10/13/24 22:00 10/13/24 23:02 10 MG Memantine 10 mg DAILY PO 10/14/24 10:00 10/14/24 10:00 10 MG Diagnostic Test (Pha) 1 strip ACHS 10/13/24 22:00 10/14/24 11:26 1 STRIP Insulin Human Regular HS SC 10/13/24 22:00 Insulin Human Regular AC SC 10/14/24 07:00 10/14/24 11:30 15 UNITS Dextrose 50 ml UD PRN IV 10/13/24 18:45 Sodium Chloride 10 ml Q8HR IV 10/13/24 22:00 10/14/24 13:42 10 ML Acetaminophen/ Hydrocodone Bitart 1 tab Q4HP PRN PO 10/13/24 18:45 Ondansetron HCl 4 mg Q4HP PRN IV 10/13/24 18:45 Docusate Sodium 100 mg BIDPRN PRN PO 10/13/24 18:45 Acetaminophen 650 mg Q6HP PRN PO 10/13/24 18:45 Nitroglycerin 0.4 mg Q5MINP PRN SL 10/13/24 18:45 Morphine Sulfate 2 mg Q30M PRN IV 10/13/24 18:45 Ceftriaxone Sodium 50 ml @ 100 mls/hr DAILY@09 IV 10/14/24 09:00 10/14/24 09:52 100 MLS/HR Lactated Ringer's 1,000 ml @ 100 mls/hr Q10H IV 10/14/24 11:30 10/14/24 13:42 100 MLS/HR Laboratory Results Laboratory Tests 10/14/24 08:04 Chemistry Test 10/14/24 08:04 Albumin 4.8 g/dL (3.2-4.8) Calcium Level 10.4 mg/dL (8.7-10.4) Magnesium Level 1.7 mg/dL (1.6-2.6) Total Protein 7.4 g/dL (5.7-8.2) LFT Test 10/14/24 08:04 Alanine Aminotransferase (ALT) 22 U/L (7-40) Alkaline Phosphatase 117 U/L (46-116) H Aspartate Amino Transferase (AST) 12 U/L (13-40) L Total Bilirubin 0.8 mg/dL (0.2-1.0) HgA1c, TSH Test 10/14/24 08:04 Hemoglobin A1c 7.5 % A1C (<5.7) H Urinalysis Test 10/13/24 15:13 Urine Color Yellow (Yellow) Urine Clarity Turbid (Clear) H Urine pH 5.0 (5.0-9.0) Urine Specific [place] 1.023 (1.001-1.035) Urine Protein 2+ (Negative) H Urine Ketones Negative (Negative) Urine Blood Trace /uL (Negative) H Urine Nitrite Negative (Negative) Urine Bilirubin Negative (Negative) Urine Urobilinogen Normal mg/dL (Negative) Urine Leukocyte Esterase 2+ /uL (Negative) Urine RBC 2 /hpf (0 - 3) Urine Microscopic WBC 17 /HPF (0-3) H Urine Squamous Epithelial Cells Few /hpf (<5) Urine Bacteria Few /hpf (None Seen) H Urine Hyaline Casts Many /lpf (0 - 2) Urine Mucus Few (None Seen) Urine Yeast (Budding) Occasional /hpf (None Urine Creatinine 213.96 mg/dL (30.0-125.0) H Urine Protein/Creatinine Ratio 0.97 Urine Sodium 21 mmol/L (40-220) L Urine Glucose Normal mg/dL (Normal) Urine Total Protein 207.9 mg/dL (1-14) H Labs and/or images reviewed: Labs reviewed by me, Image(s) reviewed by me Assessment/Plan Assessment/Plan Impression: -acute kidney injury, prerenal, probable vasomotor nephropathy -intractable nausea and vomiting -constipation -colon cancer seven years ago with radiation therapy, chemotherapy, colostomy creation -diabetes mellitus -esophageal hernia -peristomal herniation Plan: -continue current antibiotic therapy -stool softeners -regular insulin sliding scale -IV hydration -nephrology consultation -repeat labs in a.m. Total time spent with patient discussing and formulating plan of care: 35 minutes. This medical document was created using an electronic medical record system with [employer] system. Although this document has been carefully reviewed, there may still be some phonetic and typographical errors. These areas are purely typographical due to imperfections of the software programs, and do not reflect any compromise in the patient's medical care. Plan discussed with: Patient, Other (RN) Date of Service: Oct 14, 2024 Billing Provider: MONICA DILLON NP Common Visit Codes: [id number] INP/OBS CARE(HIGH) MONICA DILLON NP Oct 14, 2024 15:38
[2024-10-15] VITALS (7 sets, daily range): BP systolic 94–131; BP diastolic 56–85; PULSE 58–93; RESP 14–19; TEMP 97.1–98.5; O2SAT 95–98
[2024-10-15 06:29] LABS: Hematocrit 39.3 % (41.0-53.0); Hemoglobin 13.4 g/dL (13.5-17.5); Mean Corpuscular Hemoglobin 28.9 pg (28.0-32.0); Mean Corpuscular Volume 85.1 fL (80.0-100.0); Nucleated Red Blood Cells % 0.1 %
[2024-10-15 06:39] LABS: Potassium 4.4 mmol/L (3.5-5.1); Sodium 137 mmol/L (136-145)
[2024-10-15 06:40] LABS: Anion Gap 11 (5-15)
[2024-10-15 06:41] LABS: Calcium 9.8 mg/dL (8.7-10.4)
[2024-10-15 06:46] LABS: BUN/Creatinine Ratio 21.8 (10.0-20.0)
[2024-10-15 06:54] LABS: Blood Urea Nitrogen 68 mg/dL (9-23); Carbon Dioxide 18 mmol/L (20-31); Chloride 108 mmol/L (98-107); Glucose 126 mg/dL (74-106)
--- NOTE | 2024-10-15 09:59 | DVHPN2 ---
Subjective Patient denies any symptoms at this time Reviewed: Care Plan, H&P, Labs, Medications Changes from previous H/P or p: No Changes General: Per HPI Eyes: No Pain, No Vision change, No Conjunctivae inflammation, No Eyelid inflammation, No Other, No Redness ENT: No Ear pain, No Ear discharge, No Nose pain, No Nose discharge, No Nose congestion, No Mouth pain, No Mouth swelling, No Throat pain, No Throat swelling, No Other Cardiovascular: No Chest Pain, No Palpitations, No Orthopnea, No Paroxysmal Noc. Dyspnea, No Edema, No Lt Headedness, No Other Respiratory: No Cough, No Dry, No Shortness of breath, No SOB with excertion, No Wheezing, No Hemoptysis, No Pleuritic Pain, No Sputum, No Other Gastrointestinal: Nausea, Vomiting, Abdominal Pain; No Diarrhea, No Constipation, No Melena, No Hematochezia; Other (Colostomy bag) Genitourinary: No Dysuria, No Frequency, No Incontinence, No Hematuria, No Retention, No Other Musculoskeletal: No other, No neck pain, No shoulder pain, No arm pain, No back pain, No hand pain, No leg pain, No foot pain Skin: No Rash, No Lesions, No Jaundice, No Bruising; Other (Ostomy) Objective Vitals Vital Signs Date Time Temp Pulse Resp B/P (MAP) Pulse Ox O2 Delivery O2 Flow Rate FiO2 10/15/24 08:30 97.1 83 16 114/83 (93) 98 97.1 10/15/24 08:00 Room Air* 0 21 Intake/Output Intake and Output 10/15/24 07:00 Intake Total 3500 ml Output Total 1900 ml Balance 1600 ml Intake Oral 1950 ml IV Total 1550 ml Output Urine Total 1900 ml # Bowel Movements 3 General Appearance: Alert, Oriented X3, Cooperative, No acute distress HEENT: Atraumatic, PERRLA Cardiovascular: Normal S1, Normal S2 Abdomen: Normal bowel sounds, Soft, No tenderness Musculoskeletal: Normal sensory function, Normal motor function Neuro: Normal gait, Normal speech Skin: Dry, Intact Psych/Mental Status: Mental status NL, Mood NL Medications Current Medications Medications Dose Ordered Sig/Lilo Route Start Time Stop Time Status Last Admin Dose Admin Atorvastatin Calcium 20 mg HS PO 10/13/24 22:00 10/14/24 21:36 20 MG Aspirin 81 mg DAILY PO 10/14/24 10:00 10/15/24 09:00 81 MG Famotidine 20 mg Q2D IV 10/13/24 22:00 Donepezil HCl 10 mg HS PO 10/13/24 22:00 10/14/24 21:36 10 MG Memantine 10 mg DAILY PO 10/14/24 10:00 10/15/24 09:00 10 MG Diagnostic Test (Pha) 1 strip ACHS 10/13/24 22:00 10/15/24 06:28 1 STRIP Insulin Human Regular HS SC 10/13/24 22:00 10/14/24 21:56 4 UNITS Insulin Human Regular AC SC 10/14/24 07:00 10/15/24 06:31 2 UNITS Dextrose 50 ml UD PRN IV 10/13/24 18:45 Sodium Chloride 10 ml Q8HR IV 10/13/24 22:00 10/15/24 06:27 10 ML Acetaminophen/ Hydrocodone Bitart 1 tab Q4HP PRN PO 10/13/24 18:45 Ondansetron HCl 4 mg Q4HP PRN IV 10/13/24 18:45 Docusate Sodium 100 mg BIDPRN PRN PO 10/13/24 18:45 Acetaminophen 650 mg Q6HP PRN PO 10/13/24 18:45 Nitroglycerin 0.4 mg Q5MINP PRN SL 10/13/24 18:45 Morphine Sulfate 2 mg Q30M PRN IV 10/13/24 18:45 Ceftriaxone Sodium 50 ml @ 100 mls/hr DAILY@09 IV 10/14/24 09:00 10/15/24 08:58 100 MLS/HR Lactated Ringer's 1,000 ml @ 100 mls/hr Q10H IV 10/14/24 11:30 10/15/24 07:40 100 MLS/HR Laboratory Results Laboratory Tests 10/15/24 05:17 Chemistry Test 10/15/24 05:17 Calcium Level 9.8 mg/dL (8.7-10.4) Urinalysis Test 10/13/24 15:13 Urine Color Yellow (Yellow) Urine Clarity Turbid (Clear) H Urine pH 5.0 (5.0-9.0) Urine Specific [place] 1.023 (1.001-1.035) Urine Protein 2+ (Negative) H Urine Ketones Negative (Negative) Urine Blood Trace /uL (Negative) H Urine Nitrite Negative (Negative) Urine Bilirubin Negative (Negative) Urine Urobilinogen Normal mg/dL (Negative) Urine Leukocyte Esterase 2+ /uL (Negative) Urine RBC 2 /hpf (0 - 3) Urine Microscopic WBC 17 /HPF (0-3) H Urine Squamous Epithelial Cells Few /hpf (<5) Urine Bacteria Few /hpf (None Seen) H Urine Hyaline Casts Many /lpf (0 - 2) Urine Mucus Few (None Seen) Urine Yeast (Budding) Occasional /hpf (None Urine Creatinine 213.96 mg/dL (30.0-125.0) H Urine Protein/Creatinine Ratio 0.97 Urine Sodium 21 mmol/L (40-220) L Urine Glucose Normal mg/dL (Normal) Urine Total Protein 207.9 mg/dL (1-14) H Labs and/or images reviewed: Labs reviewed by me, Image(s) reviewed by me Assessment/Plan Assessment/Plan Impression: -acute kidney injury, prerenal, probable vasomotor nephropathy -intractable nausea and vomiting -constipation -colon cancer seven years ago with radiation therapy, chemotherapy, colostomy creation -diabetes mellitus -esophageal hernia -peristomal herniation Plan: Events: Improvement with renal function. Good urine output. Stools are now formed with diarrhea resolving -continue current antibiotic therapy -regular insulin sliding scale -IV hydration -nephrology consultation -repeat labs in a.m. Total time spent with patient discussing and formulating plan of care: 35 minutes. This medical document was created using an electronic medical record system with [employer] dictation system. Although this document has been carefully reviewed, there may still be some phonetic and typographical errors. These areas are purely typographical due to imperfections of the software programs, and do not reflect any compromise in the patient's medical care. Plan discussed with: Patient, Other (RN) My Orders Orders - MONICA DILLON NP Procedure Category Date Status Time Basic Metabolic Panel LAB 10/16/24 Verified 05:00 Complete Blood Count LAB 10/16/24 Verified 08:00 Initiate Vte MAGNOLIA 10/14/24 In Process Prophylaxis 20:42 Date of Service: Oct 15, 2024 Billing Provider: MONICA DILLON NP Common Visit Codes: [id number] INP/OBS CARE(HIGH) MONICA DILLON NP Oct 15, 2024 09:59
--- NOTE | 2024-10-15 12:27 | DVHPN2 ---
Progress Note Date Seen: Oct 15, 2024 Resident Creating Document: QUIN DOWNING RESIDENT Medical Necessity Reason Pt with a Central, PICC or Fol: No Subjective Review of Systems This is a 73-year-old male with past medical history of diabetes mellitus for the past 6 years on metformin, hypotension on metoprolol and lisinopril, dyslipidemia, colon cancer status post colostomy 7 years back after chemotherapy failed, follows [facility] who presented to the ER with a chief complaint of generalized weakness, intractable nausea and vomiting starting Sunday. Patient reports that he started to experience nausea, was unable to hold any fluids or any solid diet starting 10/11 and he was incidentally home with everything out. Denies any fever or chills. Denies any sick contacts or recent travel history. Patient lives with her daughter and her who are fine , associated symptoms include weakness, dizziness but patient denies any abdominal pain, diarrhea or constipation. He has been having black stools in his colostomy bag. On arrival to the ER, patient was afebrile, normotensive, room air CBC is unremarkable, BNP shows potassium is 5, BUN/creatinine 68/6.34 Nephrology consulted for possible NEGRITA superimposed on CKD. 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 PCP is Dr. Barry Patient follows with neurologist Dr. Cardenas 10/14 - Patient seen and examined at the bedside. Renal ultrasound pending. 10/15-patient seen and examined, reports feeling better. Patient is tolerating diet. Creatinine trending down. Objective vital signs Vital Sign Date Time Temp Pulse Resp B/P (MAP) Pulse Ox O2 Delivery O2 Flow Rate FiO2 10/15/24 08:30 97.1 83 16 114/83 (93) 98 97.1 10/15/24 08:00 Room Air* 0 21 Total Intake and Output 10/14/24 10/14/24 10/15/24 15:00 23:00 07:00 Intake Total 50 ml 2700 ml 750 ml Output Total 1000 ml 900 ml Balance 50 ml 1700 ml -150 ml medications Current Medications Medications Dose Ordered Sig/Lilo Route Start Time Stop Time Status Last Admin Dose Admin Atorvastatin Calcium 20 mg HS PO 10/13/24 22:00 10/14/24 21:36 20 MG Aspirin 81 mg DAILY PO 10/14/24 10:00 10/15/24 09:00 81 MG Famotidine 20 mg Q2D IV 10/13/24 22:00 Donepezil HCl 10 mg HS PO 10/13/24 22:00 10/14/24 21:36 10 MG Memantine 10 mg DAILY PO 10/14/24 10:00 10/15/24 09:00 10 MG Diagnostic Test (Pha) 1 strip ACHS 10/13/24 22:00 10/15/24 11:18 1 STRIP Insulin Human Regular HS SC 10/13/24 22:00 10/14/24 21:56 4 UNITS Insulin Human Regular AC SC 10/14/24 07:00 10/15/24 11:22 6 UNITS Dextrose 50 ml UD PRN IV 10/13/24 18:45 Sodium Chloride 10 ml Q8HR IV 10/13/24 22:00 10/15/24 06:27 10 ML Acetaminophen/ Hydrocodone Bitart 1 tab Q4HP PRN PO 10/13/24 18:45 Ondansetron HCl 4 mg Q4HP PRN IV 10/13/24 18:45 Docusate Sodium 100 mg BIDPRN PRN PO 10/13/24 18:45 Acetaminophen 650 mg Q6HP PRN PO 10/13/24 18:45 Nitroglycerin 0.4 mg Q5MINP PRN SL 10/13/24 18:45 Morphine Sulfate 2 mg Q30M PRN IV 10/13/24 18:45 Ceftriaxone Sodium 50 ml @ 100 mls/hr DAILY@09 IV 10/14/24 09:00 10/15/24 08:58 100 MLS/HR Lactated Ringer's 1,000 ml @ 100 mls/hr Q10H IV 10/14/24 11:30 10/15/24 07:40 100 MLS/HR Examination Male patient lying comfortably in the bed, well conversational, no acute distress General: Well-built, afebrile, palor, mucosae are moist Cardiovascular: Regular S1 and S2. No murmurs, gallops or rubs. No JVD elevation. No pedal edema Respiratory: Normal B/L air entry on room air. Clear lung sounds on auscultation Abdomen: Soft, nontender, nondistended, normoactive bowel sounds, no rebound tenderness, no organomegaly, no masses Genitourinary: Deferred MSK/skin: Mobilizes 4 limbs. Skin is dry and warm Neurological: No motor, no sensitive deficits, normal speech. Pupils are isocoric and reactive. Psych/Mental Status: A/Ox3 laboratory and microbiology Laboratory Tests 10/15/24 05:17 Test 10/15/24 05:17 Range/Units Serum Glucose 126 H 74-106 mg/dL Microbiology Date/Time Source Procedure Growth Status 10/14/24 11:36 Voided Urine Urine Culture - Preliminary Resulted Labs and/or images reviewed: Labs reviewed by me, Image(s) reviewed by me Problem List/Assessment/Plan Problem List/Assessment/Plan Acute kidney injury likely prerenal-FENA 0.5% Intractable nausea and vomiting Acute cystitis Likely gastroenteritis Diabetes mellitus type 2 for the past 6 years on metformin Hypertension Dyslipidemia Colon cancer status post colostomy 7 years back follows [facility] BUN/creatinine 68/6.34 Plan: BUN/creatinine trending down, continue IV LR. FENA 0.5 Lactate 2.0 IV ceftriaxone for acute cystitis COVID/influenza testing negative Kidney ultrasound shows normal sonographic appearance of the kidneys, no hydronephrosis Recommend resuming clear liquid diet, advanced as tolerated Preliminary urine culture appearing contaminated We will continue to follow up Plan discussed with patient, nurse in which all questions have been answered Discussed with Plan discussed with: Patient QUIN DOWNING RESIDENT Oct 15, 2024 12:27
[2024-10-16 01:00] VITALS: BP 110/71; PULSE 70; RESP 19; TEMP 96.7; O2SAT 98
[2024-10-16] MEDS: ONDANSETRON HCL 4 MG/2 ML VIAL IV PRN (04:27)
[2024-10-16 05:00] VITALS: BP 97/55; PULSE 87; RESP 19; TEMP 97.1; O2SAT 97
[2024-10-16 05:41] LABS: Hematocrit 34.1 % (41.0-53.0); Hemoglobin 11.9 g/dL (13.5-17.5); Mean Corpuscular Hemoglobin 29.6 pg (28.0-32.0); Mean Corpuscular Volume 84.7 fL (80.0-100.0); Nucleated Red Blood Cells % 0.1 %
[2024-10-16 05:50] LABS: Potassium 3.6 mmol/L (3.5-5.1); Sodium 141 mmol/L (136-145)
[2024-10-16 05:51] LABS: Anion Gap 11 (5-15); Calcium 9.8 mg/dL (8.7-10.4); Carbon Dioxide 20 mmol/L (20-31)
[2024-10-16 05:56] LABS: BUN/Creatinine Ratio 28.9 (10.0-20.0)
[2024-10-16 06:07] LABS: Blood Urea Nitrogen 43 mg/dL (9-23); Chloride 110 mmol/L (98-107); Glucose 129 mg/dL (74-106)
[2024-10-16 08:00] VITALS: PULSE 71
[2024-10-16 09:00] VITALS: BP 129/80; PULSE 72; RESP 16; TEMP 97.8; O2SAT 98
--- NOTE | 2024-10-16 10:06 | DVHPN2 ---
Progress Note Date Seen: Oct 16, 2024 Resident Creating Document: QUIN DOWNING RESIDENT Medical Necessity Reason Pt with a Central, PICC or Fol: No Subjective Review of Systems his is a 73-year-old male with past medical history of diabetes mellitus for the past 6 years on metformin, hypotension on metoprolol and lisinopril, dyslipidemia, colon cancer status post colostomy 7 years back after chemotherapy failed, follows [facility] who presented to the ER with a chief complaint of generalized weakness, intractable nausea and vomiting starting Sunday. Patient reports that he started to experience nausea, was unable to hold any fluids or any solid diet starting 10/11 and he was incidentally home with everything out. Denies any fever or chills. Denies any sick contacts or recent travel history. Patient lives with her daughter and her who are fine , associated symptoms include weakness, dizziness but patient denies any abdominal pain, diarrhea or constipation. He has been having black stools in his colostomy bag. On arrival to the ER, patient was afebrile, normotensive, room air CBC is unremarkable, BNP shows potassium is 5, BUN/creatinine 68/6.34 Nephrology consulted for possible NEGRITA superimposed on CKD. Patient does not have history of CKD and does not follow [employer]. PCP is Dr. Barry Patient follows with neurologist Dr. Cardenas 10/14 - Patient seen and examined at the bedside. Renal ultrasound pending. 10/15-patient seen and examined, reports feeling better. Patient is tolerating diet. Creatinine trending down. 10/16-patient seen and examined, patient is ambulating. Creatinine 1.5, DC IV fluids. Objective vital signs Vital Sign Date Time Temp Pulse Resp B/P (MAP) Pulse Ox O2 Delivery O2 Flow Rate FiO2 10/16/24 05:00 97.1 87 19 97/55 (69) 97 97.1 10/15/24 20:00 Room Air* 0 21 Total Intake and Output 10/15/24 10/15/24 10/16/24 15:00 23:00 07:00 Intake Total 650 ml 1100 ml 350 ml Output Total 1000 ml 800 ml Balance -350 ml 1100 ml -450 ml medications Current Medications Medications Dose Ordered Sig/Lilo Route Start Time Stop Time Status Last Admin Dose Admin Atorvastatin Calcium 20 mg HS PO 10/13/24 22:00 10/15/24 21:48 20 MG Aspirin 81 mg DAILY PO 10/14/24 10:00 10/15/24 09:00 81 MG Famotidine 20 mg Q2D IV 10/13/24 22:00 10/15/24 21:53 20 MG Donepezil HCl 10 mg HS PO 10/13/24 22:00 10/15/24 21:49 10 MG Memantine 10 mg DAILY PO 10/14/24 10:00 10/15/24 09:00 10 MG Diagnostic Test (Pha) 1 strip ACHS 10/13/24 22:00 10/16/24 06:35 1 STRIP Insulin Human Regular HS SC 10/13/24 22:00 10/15/24 21:57 4 UNITS Insulin Human Regular AC SC 10/14/24 07:00 10/16/24 06:44 2 UNITS Dextrose 50 ml UD PRN IV 10/13/24 18:45 Sodium Chloride 10 ml Q8HR IV 10/13/24 22:00 10/16/24 06:36 10 ML Acetaminophen/ Hydrocodone Bitart 1 tab Q4HP PRN PO 10/13/24 18:45 Ondansetron HCl 4 mg Q4HP PRN IV 10/13/24 18:45 10/16/24 04:27 4 MG Docusate Sodium 100 mg BIDPRN PRN PO 10/13/24 18:45 Acetaminophen 650 mg Q6HP PRN PO 10/13/24 18:45 Nitroglycerin 0.4 mg Q5MINP PRN SL 10/13/24 18:45 Morphine Sulfate 2 mg Q30M PRN IV 10/13/24 18:45 Ceftriaxone Sodium 50 ml @ 100 mls/hr DAILY@09 IV 10/14/24 09:00 10/15/24 08:58 100 MLS/HR Examination Male patient lying comfortably in the bed, well conversational, no acute distress General: Well-built, afebrile, palor, mucosae are moist Cardiovascular: Regular S1 and S2. No murmurs, gallops or rubs. No JVD elevation. No pedal edema Respiratory: Normal B/L air entry on room air. Clear lung sounds on auscultation Abdomen: Soft, nontender, nondistended, normoactive bowel sounds, no rebound tenderness, no organomegaly, no masses Genitourinary: Deferred MSK/skin: Mobilizes 4 limbs. Skin is dry and warm Neurological: No motor, no sensitive deficits, normal speech. Pupils are isocoric and reactive. Psych/Mental Status: A/Ox3 laboratory and microbiology Laboratory Tests 10/16/24 04:43 Test 10/16/24 04:43 Range/Units Serum Glucose 129 H 74-106 mg/dL Microbiology Date/Time Source Procedure Growth Status 10/14/24 11:36 Voided Urine Urine Culture - Final Complete Labs and/or images reviewed: Labs reviewed by me, Image(s) reviewed by me Problem List/Assessment/Plan Problem List/Assessment/Plan Acute kidney injury - prerenal - FENA 0.5% Intractable nausea and vomiting Acute cystitis Likely gastroenteritis Diabetes mellitus type 2 for the past 6 years on metformin Hypertension Dyslipidemia Colon cancer status post colostomy 7 years back follows [facility] BUN/creatinine 68/6.34 BUN/creatinine 43/1.49 Plan: BUN/creatinine trending down, discontinue IV LR. NEGRITA is resolving. We will sign off at this point. No acute nephrological workup indicated at this time. Please re-consult if deemed necessary. Thank you for consultation Lactate 2.0 IV ceftriaxone for acute cystitis COVID/influenza testing negative Kidney ultrasound shows normal sonographic appearance of the kidneys, no hydronephrosis Advance diet as tolerated Preliminary urine culture appearing contaminated We will continue to follow up Plan discussed with patient, nurse in which all questions have been answered Discussed with Plan discussed with: Patient ADDENDUM ADDENDUM 73-year-old male history of colon cancer status post colectomy and colostomy bag presents to the hospital complaining of nausea vomiting decreased p.o. intake. He was admitted with acute kidney injury prerenal etiology due to volume depletion. Status post IV fluid hydration now kidney function is improving. Recommend and agree with replacing electrolytes Encourage oral hydration From a nephrology standpoint patient can be signed off and we will obtain outpatient renal Clinic follow-up. QUIN DOWNING RESIDENT Oct 16, 2024 10:06 PATRICIA LOERA MD Oct 16, 2024 14:18
[2024-10-16 12:46] VITALS: BP 136/75; PULSE 63; RESP 16; TEMP 97.8; O2SAT 99
--- NOTE | 2024-10-16 13:42 | DVHDS2 ---
Discharge Summary Date of Admission Oct 13, 2024 at 18:32 Date of Discharge: Oct 16, 2024 Admitting Diagnosis Generalized weakness Labs/Diagnostic Data: Laboratory Results Test 10/16/24 10:46 10/16/24 04:43 10/14/24 13:20 10/14/24 13:05 POC Glucose 251 mg/dl (70-106) White Blood Count 5.5 10^3/uL (4.4-10.8) Red Blood Count 4.03 10^6/uL (4.5-5.90) Hemoglobin 11.9 g/dL (13.5-17.5) Hematocrit 34.1 % (41.0-53.0) Mean Corpuscular Volume 84.7 fL (80.0-100.0) Mean Corpuscular Hemoglobin 29.6 pg (28.0-32.0) Mean Corpuscular Hemoglobin Concent 35.0 g/dL (32.0-36.0) Red Cell Distribution Width 16.6 % (11.8-14.3) Platelet Count 232 10^3/uL (140-450) Mean Platelet Volume 8.0 fL (6.9-10.8) Neutrophils (%) (Auto) 64.6 % (37.0-80.0) Lymphocytes (%) (Auto) 19.9 % (10.0-50.0) Monocytes (%) (Auto) 11.9 % (0.0-12.0) Eosinophils (%) (Auto) 3.2 % (0.0-7.0) Basophils (%) (Auto) 0.4 % (0.0-2.0) Neutrophils # (Auto) 3.6 10 ^3/uL (1.6-8.6) Lymphocytes # (Auto) 1.1 10 ^3/uL (0.4-5.4) Monocytes # (Auto) 0.7 10 ^3/uL (0-1.3) Eosinophils # (Auto) 0.2 10 ^3/uL (0-0.8) Basophils # (Auto) 0 10 ^3/uL (0-0.2) Nucleated Red Blood Cells 0.1 % Sodium Level 141 mmol/L (136-145) Potassium Level 3.6 mmol/L (3.5-5.1) Chloride Level 110 mmol/L (98-107) Carbon Dioxide Level 20 mmol/L (20-31) Anion Gap 11 (5-15) Blood Urea Nitrogen 43 mg/dL (9-23) Creatinine 1.49 mg/dL (0.700-1.30) Glomerular Filtration Rate Calc 50 mL/min (>90) BUN/Creatinine Ratio 28.9 (10.0-20.0) Serum Glucose 129 mg/dL (74-106) Calcium Level 9.8 mg/dL (8.7-10.4) Stool Occult Blood Negative (Negative) Stool Occult Blood Sample #3 (Negative) Lactic Acid Level 2.0 mmol/L (0.4-2.0) Test 10/14/24 10:45 10/14/24 08:04 10/13/24 15:13 Influenza Type A Antigen Negative (Negative) Influenza Type B Antigen Negative (Negative) SARS-CoV-2 Antigen (Rapid) Negative (NEGATIVE) Hemoglobin A1c 7.5 % A1C (<5.7) Magnesium Level 1.7 mg/dL (1.6-2.6) Total Bilirubin 0.8 mg/dL (0.2-1.0) Aspartate Amino Transferase (AST) 12 U/L (13-40) Alanine Aminotransferase (ALT) 22 U/L (7-40) Alkaline Phosphatase 117 U/L (46-116) Total Protein 7.4 g/dL (5.7-8.2) Albumin 4.8 g/dL (3.2-4.8) Vitamin B12 Level 363 pg/mL (211-911) Vitamin D 25-Hydroxy 51.4 ng/mL (30.0-100) Parathyroid Hormone (Intact) 11.5 pg/mL (18.4-80.1) Urine Color Yellow (Yellow) Urine Clarity Turbid (Clear) Urine pH 5.0 (5.0-9.0) Urine Specific [place] 1.023 (1.001-1.035) Urine Protein 2+ (Negative) Urine Ketones Negative (Negative) Urine Blood Trace /uL (Negative) Urine Nitrite Negative (Negative) Urine Bilirubin Negative (Negative) Urine Urobilinogen Normal mg/dL (Negative) Urine Leukocyte Esterase 2+ /uL (Negative) Urine RBC 2 /hpf (0 - 3) Urine Microscopic WBC 17 /HPF (0-3) Urine Squamous Epithelial Cells Few /hpf (<5) Urine Bacteria Few /hpf (None Seen) Urine Hyaline Casts Many /lpf (0 - 2) Urine Mucus Few (None Seen) Urine Yeast (Budding) Occasional /hpf (None Urine Creatinine 213.96 mg/dL (30.0-125.0) Urine Protein/Creatinine Ratio 0.97 Urine Sodium 21 mmol/L (40-220) Urine Glucose Normal mg/dL (Normal) Urine Total Protein 207.9 mg/dL (1-14) Other Laboratory Tests 10/16/24 04:43 Brief Hx & Hospital Course: History of Present Illness The patient is a 73-year-old male with past medical history of colon cancer, diabetes mellitus, and hypertension who presented to [facility] ED with complaint of generalized weakness. Patient reports that he has been experiencing generalized weakness associated with abdominal pain, dizziness, nausea, vomiting, sleepy for the past 3 days, getting worse today that prompted this visit. Patient was seen and evaluated in the ED, laboratory data shows WBC 9.5, platelets 347, sodium 131, potassium 5.1, BUN 68, creatinine 6.34, glucose 180, calcium 11.0, urinalysis positive for urinary tract infection, blood pressure 102/52, heart rate 78, temperature 98.6 F, O2 saturation 98% on room air. Abdomen/pelvis CT revealing small esophageal hernia hernia, fecal retention in the colon consistent with constipation, left lower abdominal colostomy with peristomal herniation, right inguinal hernia hernia. Patient was started on IV antibiotic regimen Rocephin, please see medication orders section in the computer. On my assessment, patient denied chest pain, no headache, no dizziness, no diaphoresis, no shortness of breath, no abdominal pain, no diarrhea, no nausea or vomiting at this moment, no fever, no chills. Patient was admitted for further evaluation and medical management. Course of hospitalization: Patient was given aggressive IV hydration. Patient was placed on antibiotic therapy for UTI. Nephrology consultation was placed. Patient's renal function has improved dramatically with the patient having adequate urine output. Patient is able to tolerate oral intake. Patient's white blood cell count has remained normal. Patient has been afebrile. He will be discharged home as instructed to follow up with his PCP in 1-2 weeks. He is to continue all previous home medications. Patient has received adequate IV antibiotic therapy for noted UTI. All questions answered. Physical examination General: Alert and Oriented x3. No acute distress. Well-nourished. Eyes: EOMI. Anicteric. HENT: Moist mucous membranes. Lungs: Clear to auscultation bilaterally. No accessory muscle use. Cardiovascular: Regular rate and rhythm. No murmur. No JVD. Abdomen: Soft, non-tender and non-distended. No palpable masses. Colostomy Extremities: No edema. Non-tender. Skin: No rashes or lesions. Warm. Neurologic: No focal neurological deficits. CN II-XII grossly intact, but not individually tested. Psychiatric: Cooperative. Appropriate mood and affect. Total time spent with patient discussing and formulating plan of care: 35 minutes. This medical document was created using an electronic medical record system with [employer] dictation system. Although this document has been carefully reviewed, there may still be some phonetic and typographical errors. These areas are purely typographical due to imperfections of the software programs, and do not reflect any compromise in the patient's medical care. Consults/Reason for consult Nephrology: Acute kidney injury Condition at Discharge: Fair Final Diagnosis/Problems List Acute Kidney Injusry Diagnosis: -acute kidney injury, prerenal, probable vasomotor nephropathy -intractable nausea and vomiting -constipation -colon cancer seven years ago with radiation therapy, chemotherapy, colostomy creation -diabetes mellitus -esophageal hernia -peristomal herniation Discharge Disposition: Home Discharge Instruct/Medications Diet: Regular Activity: No Restrictions, As Tolerated Follow Up/Referral: PCP in 1 to 2 weeks Medications: Continue all home medications Scheduled Atorvastatin Calcium (Atorvastatin Calcium), 1 TAB PO DAILY, (Reported) Clopidogrel Bisulfate (Clopidogrel), 1 TAB PO DAILY, (Reported) Famotidine (Famotidine), 1 TAB PO BID, (Reported) Memantine Hydrochloride (Memantine HCl), 1 TAB PO BID, (Reported) Metformin Hydrochloride (Metformin Hcl), 1 TAB PO BID, (Reported) Metoprolol Tartrate (Lopressor), 1 TAB PO BID, (Reported) Pantoprazole Sodium Sesquihydr (Pantoprazole Sodium), 1 TAB PO BID, (Reported) Miscellaneous Medications Donepezil Hydrochloride (Donepezil Hcl), 1 TAB PO, (Reported) Simvastatin (Simvastatin), 1 TAB PO, (Reported) Sucralfate (Sucralfate), 1 TAB PO, (Reported) 36 Discharge Statement: "Patient was advised to return to the ER or call 911 if any headaches, dizziness, shortness of breath, chest pain, abdominal pain, bleeding, fevers, or worsening of medical condition. Patient was counseled about treatment plan, medications, possible side effects, patientverbalized understanding. All questions were answered to the best of my ability. This discharge took greater then 30 minutes in planning, reviewing documentation, counseling the patient, and discussing with other team members." ASSESSMENT ASSESSMENT Assessment Acute Kidney Injusry Date of Service: Oct 16, 2024 Billing Provider: MONICA DILLON NP Common Visit Codes: 25268-MYZ/OBS DISCH DAY >30min MONICA DILLON NP Oct 16, 2024 13:42
[2024-10-16 13:52] VITALS: TEMP 36.6
[2024-10-16] MEDS: LACTULOSE 20Gm/30ML SOLN PO ONE (15:40)
== END 2024-10-16 16:20 | disposition home or self-care (01) | DRG 371 ==
LOC: ER 11:42 → OVERFLOW 18:32 → TELE-WESTW 22:50
PROVIDERS: ADMIT Nurse Practitioner Acute Care; ATTEND Nurse Practitioner Acute Care
DX: A04.9 Bacterial intestinal infection, unspecified (principal); N17.0 Acute kidney failure with tubular necrosis; N30.00 Acute cystitis without hematuria; G90.89 Other disorders of autonomic nervous system; I10 Essential (primary) hypertension; E11.9 Type 2 diabetes mellitus without complications; K40.90 Unilateral inguinal hernia, without obstruction or gangrene, not specified as recurrent; Z20.822 Contact with and (suspected) exposure to COVID-19; K59.00 Constipation, unspecified; I95.9 Hypotension, unspecified; E78.5 Hyperlipidemia, unspecified; E86.9 Volume depletion, unspecified; Z93.3 Colostomy status; Z90.49 Acquired absence of other specified parts of digestive tract; Z85.038 Personal history of other malignant neoplasm of large intestine; Z79.4 Long term (current) use of insulin; Z51.11 Encounter for antineoplastic chemotherapy
CPT/HCPCS: 36415; 71045; 74176; 76775; 80048; 80053; 81001; 82270; 82306; 82570; 82607; 82962; 83036; 83605; 83735; 83970; 84156; 84300; 85025; 87086; 87426; 87804; 93005; 96360; G0378; J1815; J2405; J3490

== ENCOUNTER 2024-11-19 17:17 | Inpatient (IN) | payer OTHER, MEDICAID ==
[~2024-11-19] VITALS: Ht 154.9 cm; Wt 64.0 kg
[~2024-11-19 17:17] MED LIST: ATOR-47 PO; CLOP75TA70 PO; DONE1TAB88 PO; FAMO-12 PO; MEMA1TAB5 PO; MET25T PO; METF-372 PO; PANT40T PO; SIMV20TA20 PO; SUCR1TAB PO
[2024-11-19] MEDS: SODIUM CHLORIDE 0.9% 500 ML IVB ONE (17:30)
--- NOTE | 2024-11-19 17:33 | ED.PDOC ---
GI ASSESSMENT HPI Comments This is a 74 year-old male, with a PMHX of HTN, DM, and Colon Cancer, who presents to the ED via EMS with a chief complaint of diarrhea with associated N/V and dizziness as of X2 months ago. Patient reports he was told by his PCP to come to the emergency room for onset of symptoms. Patient states he has a scheduled appointment with a farmworker on 11/24/24. Patient has no further complaints at this time and otherwise denies further associated symptoms of blood streaked stool, abdominal pain, fatigue, weakness, dysuria, fever, or chills. Chief Complaint: Diarrhea Time Seen by MD: 17:26 Primary Care Provider: GEORGINA Ellis Notes: Cue Worker Notes, Medications, Allergies Allergies: Coded Allergies: NO KNOWN ALLERGIES (Unverified , 04/06/18) Home Meds Reported Medications Clopidogrel Bisulfate (CLOPIDOGREL) 75 Mg Tab, 1 TAB PO DAILY 10/14/24 Sucralfate (Sucralfate) 1 Gm Tab, 1 TAB PO 10/14/24 Metformin Hydrochloride (Metformin Hcl) 1,000 Mg Tab, 1 TAB PO BID 10/14/24 Pantoprazole Sodium Sesquihydr (Pantoprazole Sodium) 40 Mg Tab, 1 TAB PO BID 10/14/24 Metoprolol Tartrate (Lopressor) 25 Mg Tb, 1 TAB PO BID 10/14/24 Memantine Hydrochloride (Memantine HCl) 10 Mg Tab, 1 TAB PO BID 10/14/24 Donepezil Hydrochloride (DONEPEZIL HCL) 10 Mg Tab, 1 TAB PO 10/14/24 Simvastatin (Simvastatin) 20 Mg Tab, 1 TAB PO 10/14/24 Famotidine (Famotidine) 20 Mg Tab, 1 TAB PO BID 10/14/24 Atorvastatin Calcium (ATORVASTATIN CALCIUM) 80 Mg Tab, 1 TAB PO DAILY 10/14/24 Information Source: Patient, Emergency Med Personnel Mode of Arrival: EMS Timing: Months Duration: Since onset Severity: Moderate Associated sign and symptoms: Nausea, Vomiting, Diarrhea, Other (dizziness ) Past Medical History PAST MEDICAL HISTORY: Cancer, DM, HTN Surgical History: Hernia Repair Surgical History (Other): Cholostomy Family History Family History: Reviewed,noncontributory to illness, Unknown Social History Smoker: Non-Smoker Alcohol: Denies ETOH Use Drugs: Denies Drug Use Lives In: Home Constitutional: denies: chills, diaphoresis, fatigue, fever, malaise, sweats, weakness, others EENTM: denies: blurred vision, double vision, ear bleeding, ear discharge, ear drainage, ear pain, ear ringing, eye pain, eye redness, hearing loss, mouth pain, mouth swelling, nasal discharge, nose bleeding, nose congestion, nose pain, photophobia, tearing, throat pain, throat swelling, voice changes, others Respiratory: denies: cough, hemoptysis, orthopnea, SOB at rest, shortness of breath, SOB with excertion, stridor, wheezing, others Cardiovascular: denies: chest pain, dizzy spells, diaphoresis, Dyspnea on exertion, edema, irregular heart beat, left arm pain, lightheadedness, palpitations, PND, syncope, others Gastrointestinal: reports: diarrhea, nausea, vomiting; denies: abdomen distended, abdominal pain, blood streaked bowels, constipated, dysphagia, difficulty swallowing, hematemesis, melena, poor appetite, poor fluid intake, rectal bleeding, rectal pain, others Genitourinary: denies: burning, dysuria, flank pain, frequency, hematuria, incontinence, penile discharge, penile sore, pain, testicle pain, testicle swelling, urgency, others Neurological: reports: dizziness; denies: fainting, headache, left sided numbness, left sided weakness, numbness, paresthesia, pre-existing deficit, right sided numbness, right sided weakness, seizure, speech problems, tingling, tremors, weakness, others Musculoskeletal: denies: back pain, gout, joint pain, joint swelling, muscle pain, muscle stiffness, neck pain, others Integumetry: denies: bruises, change in color, change in hair/nails, dryness, laceration, lesions, lumps, rash, wounds, others Allergic/Immunocompromised: denies: Difficulty Healing, Frequent Infections, Hives, Itching, others Hematologic/Lymphatic: denies: anemia, blood clots, easy bleeding, easy bruisin g, swollen glands, others Endocrine: denies: excessive hunger, excessive sweating, excessive thirst, excessive urination, flushing, intolerance to cold, intolerance to heat, unexplained weight gain, unexplained weight loss, others Psychiatric: denies: anxiety, bipolar disorder, depression, hopeless, panic disorder, schizophrenia, sleepless, suicidal, others All Other Systems: Reviewed and Negative Physical Exam General Appearance: Moderate Distress HEENT: Normal ENT Inspection, Pharynx Normal, TMs Normal Neck: Full Range of Motion, Non-Tender, Normal, Normal Inspection Respiratory: Chest Non-Tender, Lungs Clear, No Accessory Muscle Use, No Respiratory Distress, Normal Breath Sounds Cardiovascular: No Edema, No JVD, No Murmur, No Gallop, Normal Peripheral Pulses, Regular Rate/Rhythm Breast Exam: Deferred Gastrointestinal: No Organomegaly, Non Tender, No Pulsatile Mass, Normal Bowel Sounds, Soft Genitalia: Deferred Pelvic: Deferred Rectal: Deferred Extremities: No calf tenderness, Normal capillary refill, Normal inspection, Normal range of motion, Non-tender, No pedal edema Musculoskeletal : Apperance: Normal Neurologic: Alert, shift supervisor II-XII nml as Tested, Motor Weakness, Normal Affect, Normal Mood, No Sensory Deficits Cerebellar Function: Normal Reflexes: Normal Skin: Dry, Normal Color, Warm Lymphatic: No Adenopathy Was a procedure done? Was a procedure done?: No GI differential Dx Differential Diagnosis: Constipation, Gastritis/PUD, Gastroenteritis, Inflammatory BD, Food Poisoning, Bacterial, Parasitic, Viral X-Ray, Labs, Meds, VS Vital Signs Date Time Temp Pulse Resp B/P (MAP) Pulse Ox O2 Delivery O2 Flow Rate FiO2 11/19/24 17:28 98.8 72 16 108/60 98 98.8 Lab Test 11/19/24 18:07 Range/Units White Blood Count 13.5 H 4.4-10.8 10^3/uL Red Blood Count 4.92 4.5-5.90 10^6/uL Hemoglobin 14.5 13.5-17.5 g/dL Hematocrit 43.8 41.0-53.0 % Mean Corpuscular Volume 89.0 80.0-100.0 fL Mean Corpuscular Hemoglobin 29.5 28.0-32.0 pg Mean Corpuscular Hemoglobin Concent 33.2 32.0-36.0 g/dL Red Cell Distribution Width 15.7 H 11.8-14.3 % Platelet Count 351 140-450 10^3/uL Mean Platelet Volume 7.5 6.9-10.8 fL Neutrophils (%) (Auto) 82.6 H 37.0-80.0 % Lymphocytes (%) (Auto) 9.8 L 10.0-50.0 % Monocytes (%) (Auto) 6.5 0.0-12.0 % Eosinophils (%) (Auto) 0.9 0.0-7.0 % Basophils (%) (Auto) 0.2 0.0-2.0 % Neutrophils # (Auto) 11.2 H 1.6-8.6 10 ^3/uL Lymphocytes # (Auto) 1.3 0.4-5.4 10 ^3/uL Monocytes # (Auto) 0.9 0-1.3 10 ^3/uL Eosinophils # (Auto) 0.1 0-0.8 10 ^3/uL Basophils # (Auto) 0 0-0.2 10 ^3/uL Nucleated Red Blood Cells 0.0 % Sodium Level 131 L 136-145 mmol/L Potassium Level 5.4 H 3.5-5.1 mmol/L Chloride Level 102 98-107 mmol/L Carbon Dioxide Level 14 L 20-31 mmol/L Anion Gap 15 5-15 Blood Urea Nitrogen 44 H 9-23 mg/dL Creatinine 3.82 H 0.700-1.30 mg/dL Glomerular Filtration Rate Calc 16 >90 mL/min BUN/Creatinine Ratio 11.5 10.0-20.0 Serum Glucose 140 H 74-106 mg/dL Calcium Level 10.0 8.7-10.4 mg/dL CAT scan of the abdomen and pelvis shows: It is pending at this time. It will be followed up by the hospitalist The CBC shows an elevated white blood cell count of 13.5 The chemistry panel shows hyperkalemia at 5.4 The BUN is 44 and the creatinine is 3.82 At this time, the patient is being admitted to the hospitalist The patient's stool was sent off for C diff Images Reviewed?: Images reviewed and evaluated by me Time of 1ST Reevaluation: 18:00 Reevaluation 1ST: Unchanged Patient Education/Counseling: Diagnosis, Treatment, Prognosis Family Education/Counseling: No Family Present SEPSIS Sepsis Screen Physician Orders Urinalysis (11/19/24 17:30) Ct Ab Pel Wo Con-No Oral Or Iv (11/19/24 17:30) Heplock Iv (11/19/24 17:30) Clostridium Difficile Toxin (11/19/24 17:30) Vital Signs Date Time Temp Pulse Resp B/P (MAP) Pulse Ox O2 Delivery O2 Flow Rate FiO2 11/19/24 17:28 98.8 72 16 108/60 98 98.8 Laboratory Tests Test 11/19/24 18:07 White Blood Count 13.5 10^3/uL (4.4-10.8) H Departure 1 Departure Time of Disposition: 20:01 Impression: Primary Impression: Acute abdominal pain Additional Impressions: Diarrhea Qualified Codes: R19.7 - Diarrhea, unspecified Hyperkalemia Disposition: ADMITTED INPATIENT Admit to: Med Surg Condition: Fair Critical Care Note Critical Care Time?: No Stability Stability form required: Yes Unstable for transfer: ED Physician Assesment (Clinical assesment) Heart Score Heart Score: Heart Score Response (Comments) Value History N/A 0 EKG N/A 0 Age N/A 0 Risk Factors N/A 0 Troponin N/A 0 Total 0 I personally scribed for MATY DELEON MD ([email or web address]) on 11/19/24 at 17:33. Electronically submitted by N[facility]ita [facility] MATY DELEON MD Nov 19, 2024 17:33
[2024-11-19 18:32] LABS: Hematocrit 43.8 % (41.0-53.0); Hemoglobin 14.5 g/dL (13.5-17.5); Mean Corpuscular Hemoglobin 29.5 pg (28.0-32.0); Mean Corpuscular Volume 89.0 fL (80.0-100.0); Nucleated Red Blood Cells % 0.0 %
[2024-11-19 18:37] LABS: Chloride 102 mmol/L (98-107)
[2024-11-19 18:38] LABS: Anion Gap 15 (5-15)
[2024-11-19 18:39] LABS: Calcium 10.0 mg/dL (8.7-10.4)
[2024-11-19 18:43] LABS: BUN/Creatinine Ratio 11.5 (10.0-20.0)
[2024-11-19 18:47] LABS: Blood Urea Nitrogen 44 mg/dL (9-23); Carbon Dioxide 14 mmol/L (20-31); Glucose 140 mg/dL (74-106); Potassium 5.4 mmol/L (3.5-5.1); Sodium 131 mmol/L (136-145)
--- NOTE | 2024-11-19 21:03 | DVH ---
Exam: CT CT AB PEL WO CON-NO ORAL OR IV History: weakness Comparison Study: CT CT AB PEL WO CON-NO ORAL OR IV on DOS: 10/13/24 TECHNIQUE: Multidetector CT of the abdomen was performed from lung bases to pubic symphysis. Imaging was performed without IV contrast. Axial, coronal and sagittal multiplanar reformats were obtained fr om the axial data set by the technologist. Radiation Dose Information: CT Dose: CTDI volume is 5.2 mGy. Dose-length product is 302.95 mGy*cm FINDINGS: Evaluation of solid organs is limited due to lack of intravenous contrast use. Findings: Lung Bases: No acute or significant lung base finding. Normal heart size. No pleural or pericardial effusion. Liver: The liver is normal in size. No focal lesions. Gallbladder and Biliary Tree: Unremarkable Spleen: Unremarkable Pancreas: The pancreas is grossly normal in appearance. Adrenal Glands: Unremarkable Kidneys: Kidneys are grossly normal without calculi or hydronephrosis. 5.8 cm cyst in the left kidney Bladder: Grossly unremarkable for degree of distention. Bowel: The stomach is grossly normal in appearance. Small bowel and colon are normal in caliber and d istribution. The appendix is not visualized; however, no secondary findings of acute appendicitis id entified. Ascites: Absent Lymphadenopathy: No mesenteric, retroperitoneal or periportal lymphadenopathy. Abdominal Wall and Mesentery: Colostomy noted in the lower left anterior abdominal wall. Correlate cl inically. There are no findings to suggest bowel obstruction. This appear to be a peristomal hernia. And bowel. ( Measures 6.7 x 3.4 cm). Vasculature: The visualized abdominal aorta is normal in size and caliber. Evaluation of abdominal a nd pelvic vessels is limited due to lack of intravenous contrast. Pelvic Organs: Unremarkable Musculoskeletal: No aggressive focal bony lesions, acute fractures or dislocation. Soft tissues: Unremarkable IMPRESSION: 1. Small hiatal hernia 2. 5.8 cm left renal cyst unchanged 3. 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 There are no findings to suggest bowel obstruction. Radiation optimization: All CT scans at this facility use at least one of these dose optimization savanna hniques: automated exposure control mA and/or kV adjustment per patient size (includes targeted exam s where dose is matched to clinical indication) or iterative reconstruction.
--- NOTE | 2024-11-19 22:42 | DVHHPRES ---
History of Present Illness Resident Creating Document: FLETCHER MADISON RESIDENT History of Present Illness 74-year-old male with a history of colon cancer and left-sided colostomy bag in place, diabetes mellitus, hypertension, hypercholesterolemia presents to the ER with 2 months' history of watery diarrhea, not mixed with blood, the patient has no recent travel history or sick contacts. The patient started experiencing nausea and vomiting since last 3 days which which lead him to visit the year today. He is experiencing excessive sleepiness, loss of appetite and 10 lb weight loss over the period of last 2 months. He is doing some investigations in the [facility]. The contents of vomitus is recently ingested food, not blood mixed. Patient denies any abdominal pain, fever associated with these symptoms. He does not complain of chest pain, shortness of breath or any other complaints today. Past medical history: Diabetes mellitus, hypertension, hypercholesterolemia Past surgical history: Colectomy due to colon cancer with colostomy bag in place, inguinal hernia repair surgery Patient lives with his family. Smoking history: Quit in 2009. (previously used to smoke occasionally, 1-2 cigarettes per day) Alcohol: Quit in 2009 (previously occasional beer, 6 pegs over the weekend) Drugs: None Family history: Noncontributory Home medications: Metformin, simvastatin, atorvastatin, donepezil, memantine, clopidogrel, linagliptin, metoprolol tartrate, ferrous sulfate, lisinopril Allergies: None PCP: Code status: Full code Review of Systems Gastrointestinal: Diarrhea, Other Other Loss of appetite, drowsiness, weight loss Allergies: Coded Allergies: NO KNOWN ALLERGIES (Unverified , 04/06/18) Exam Vital Signs Vital Signs Date Time Temp Pulse Resp B/P (MAP) Pulse Ox O2 Delivery O2 Flow Rate FiO2 11/19/24 20:06 74 18 97 Room Air 11/19/24 20:06 90/47 (61) 11/19/24 17:28 98.8 98.8 Exam Pt is lying on bed General Appearance: Alert, Oriented X3, Cooperative, Mild distress HEENT: Atraumatic, Mucous membranes moist/pink Respiratory: Clear to auscultation, Normal air movement, No added sounds Cardiovascular: Regular rate, Normal S1, Normal S2, No murmurs Abdominal/ : Active bowel sounds, Soft, no distention, no tenderness. Left- sided colostomy bag in place, no signs of infection, ischemia or necrosis. Colostomy appliance intact with moderate amount of liquid stool in the bag. No evidence of leakage or odor. Extremities: No edema, Normal pulses, No tenderness/swelling Skin: No Significant rash, except past surgical scars Neuro: Normal speech, sensorimotor deficits none Psych/Mental Status: Mental status NL, Mood NL Nurse was there as lever miller during examination Labs/Xrays Labs Test 11/19/24 18:07 Range/Units White Blood Count 13.5 H 4.4-10.8 10^3/uL Red Blood Count 4.92 4.5-5.90 10^6/uL Hemoglobin 14.5 13.5-17.5 g/dL Hematocrit 43.8 41.0-53.0 % Mean Corpuscular Volume 89.0 80.0-100.0 fL Mean Corpuscular Hemoglobin 29.5 28.0-32.0 pg Mean Corpuscular Hemoglobin Concent 33.2 32.0-36.0 g/dL Red Cell Distribution Width 15.7 H 11.8-14.3 % Platelet Count 351 140-450 10^3/uL Mean Platelet Volume 7.5 6.9-10.8 fL Neutrophils (%) (Auto) 82.6 H 37.0-80.0 % Lymphocytes (%) (Auto) 9.8 L 10.0-50.0 % Monocytes (%) (Auto) 6.5 0.0-12.0 % Eosinophils (%) (Auto) 0.9 0.0-7.0 % Basophils (%) (Auto) 0.2 0.0-2.0 % Neutrophils # (Auto) 11.2 H 1.6-8.6 10 ^3/uL Lymphocytes # (Auto) 1.3 0.4-5.4 10 ^3/uL Monocytes # (Auto) 0.9 0-1.3 10 ^3/uL Eosinophils # (Auto) 0.1 0-0.8 10 ^3/uL Basophils # (Auto) 0 0-0.2 10 ^3/uL Nucleated Red Blood Cells 0.0 % Sodium Level 131 L 136-145 mmol/L Potassium Level 5.4 H 3.5-5.1 mmol/L Chloride Level 102 98-107 mmol/L Carbon Dioxide Level 14 L 20-31 mmol/L Anion Gap 15 5-15 Blood Urea Nitrogen 44 H 9-23 mg/dL Creatinine 3.82 H 0.700-1.30 mg/dL Glomerular Filtration Rate Calc 16 >90 mL/min BUN/Creatinine Ratio 11.5 10.0-20.0 Serum Glucose 140 H 74-106 mg/dL Calcium Level 10.0 8.7-10.4 mg/dL SEPSIS Sepsis Screen Date sepsis recognized/suspect: Nov 19, 2024 Time Sepsis recognized/suspect: 1716 Recent Procedure: No On Antibiotic Therapy: No Respiratory Rate >20: No Heart Rate >90: No Temp<36 C (96.8 F) or >38.3 C: No SBP <90 or MAP <65 mmHG: No New Acute Mental Status Change: No Is the patient on CPAP, BIPAP,: No Physician Orders Urinalysis (11/19/24 17:30) Ct Ab Pel Wo Con-No Oral Or Iv (11/19/24 17:30) Heplock Iv (11/19/24 17:30) Clostridium Difficile Toxin (11/19/24 17:30) Stool Bacterial Culture (11/19/24 22:23) Stool Occult Blood (11/19/24 22:23) Stool Wbc (11/19/24 22:23) Sodium Chloride 0.9% (11/19/24 22:30) Admit (11/19/24 22:38) Allergies (11/19/24 22:38) Ondansetron Hcl (Zofran) (11/19/24 22:45) Complete Blood Count (11/20/24 04:00) Comprehensive Metabolic Panel (11/20/24 04:00) Notify Md Of Changes From Base (11/19/24 22:38) Stat Ekg For Chest Pain (11/19/24 22:38) Vital Signs Date Time Temp Pulse Resp B/P (MAP) Pulse Ox O2 Delivery O2 Flow Rate FiO2 11/19/24 20:06 74 18 97 Room Air 11/19/24 20:06 76 18 90/47 (61) 96 11/19/24 17:28 98.8 72 16 108/60 98 98.8 Laboratory Tests Test 11/19/24 18:07 White Blood Count 13.5 10^3/uL (4.4-10.8) H Medications Medications Dose Ordered Sig/Lilo Route Start Time Stop Time Status Last Admin Dose Admin Sodium Chloride 500 ml @ 500 mls/hr Q1H ONCE IVB 11/19/24 17:30 11/19/24 18:29 DC 11/19/24 17:30 500 MLS/HR Assessment/Plan Assessment/Plan # Diarrhea due to C diff/gastroenteritis # status post colectomy with colostomy bag placement due to colon cancer -leukocytosis, WBC 13.5 -stool bacterial culture and C diff toxin sent -IV fluid given -Abdomen pelvis CT: Small hiatal hernia. 5.8 cm left renal cyst unchanged. 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 There are no findings to suggest bowel obstruction. -antibiotics held due to concern for C diff and HUS # NEGRITA likely due to VMN Creatinine 3.82 BUN 44 BUN/creatinine-11 Urinalysis ordered Stop nephrotoxic drugs from home medications # Hyperkalemia Potassium 5.4 Monitor labs and EKG Consider Lokelma # diabetes mellitus HbA1c ordered Moderate insulin sliding scale # hypertension Stop lisinopril due to kidney injury Continue metoprolol tartrate GI prophylaxis: Not indicated DVT prophylaxis: Patient is ambulatory Diet: Cardiac Goals of care discussed with the patient for more than 27 minutes: Full code status Case discussed with Dr. Lange , patient and RN Plan discussed with: Patient, Other My Orders Orders - FLETCHER MADISON Procedure Category Date Status Time Stool Bacterial JUSTIN 11/19/24 Logged Culture 22:23 Stool Occult Blood LAB 11/19/24 Logged 22:23 Stool Wbc LAB 11/19/24 Logged 22:23 Sodium Chloride 0.9% PHA 11/19/24 In Process 22:30 Admit ADMIT 11/19/24 Transmitted 22:38 Allergies MAGNOLIA 11/19/24 Transmitted 22:38 Ondansetron Hcl PHA 11/19/24 Transmitted (Zofran) 22:45 Complete Blood Count LAB 11/20/24 Verified 04:00 Comprehensive LAB 11/20/24 Verified Metabolic Panel 04:00 Notify Of Changes MAGNOLIA 11/19/24 Transmitted From Base 22:38 Stat Ekg For Chest MAGNOLIA 11/19/24 Transmitted Pain 22:38 Common Visit Codes: 58003-FOEPZPW INP/OBS CARE (HIGH) Secondary Visit Codes: 91062-UEGGRNBZ CARE PLAN 30 MINUTES FLETCHER MADISON Nov 19, 2024 22:41
[2024-11-19] MEDS ORDERED: ONDANSETRON HCL 4 MG/2 ML VIAL IV PRN (22:45)
[2024-11-20] MEDS: SODIUM CHLORIDE 0.9% 1,000 ML IV ONE (01:13)
[2024-11-20] MEDS ORDERED: DEXTROSE (50%) 50ML SYRG IV PRN (02:00)
[2024-11-20] MEDS: SODIUM CHLORIDE 0.9% 500 ML IV ONE (04:37)
[2024-11-20 05:03] LABS: Hematocrit 39.2 % (41.0-53.0); Hemoglobin 12.7 g/dL (13.5-17.5); Mean Corpuscular Hemoglobin 29.7 pg (28.0-32.0); Mean Corpuscular Volume 91.9 fL (80.0-100.0); Nucleated Red Blood Cells % 0.0 %
[2024-11-20 05:21] LABS: Alanine Aminotransferase 24 U/L (7-40); Albumin 4.0 g/dL (3.2-4.8); Alkaline Phosphatase 111 U/L (46-116); Anion Gap 12 (5-15); BUN/Creatinine Ratio 10.6 (10.0-20.0); Glucose 85 mg/dL (74-106); Potassium 4.8 mmol/L (3.5-5.1); Total Protein 6.2 g/dL (5.7-8.2)
[2024-11-20 05:22] LABS: Bilirubin, Total 0.5 mg/dL (0.2-1.0)
[2024-11-20 05:25] LABS: Blood Urea Nitrogen 44 mg/dL (9-23); Calcium 8.4 mg/dL (8.7-10.4); Carbon Dioxide 13 mmol/L (20-31); Chloride 108 mmol/L (98-107); Sodium 133 mmol/L (136-145)
[2024-11-20] MEDS: ACCU-CHEK COMFORT CURVE STRIP VI SCH (05:56)
[2024-11-20] MEDS: InsuLIN REG 1unit/0.01ml Soln (100units/ml) SC SCH (05:56)
[2024-11-20 07:30] VITALS: PULSE 64; RESP 18; O2SAT 98
[2024-11-20] MEDS: LACTATED RINGER'S 1,000 ML IV SCH ×2 (08:50→12:00)
[2024-11-20 09:29] LABS: Urine Protein, UAD TRACE (Negative)
[2024-11-20 09:45] LABS: Protein, Urine 42.0 mg/dL (1-14)
[2024-11-20 09:47] LABS: Amphetamine Screen, Urine Neg (NEGATIVE)
[2024-11-20 09:49] LABS: Barbiturate Scree,Urine Neg (NEGATIVE); Benzodiazephine Screen, Urine Neg (NEGATIVE); Cannabinoid Screen, Urine Neg (NEGATIVE); Cocaine Screen, Urine Neg (NEGATIVE); Opiate Scree,Urine Neg (NEGATIVE); Phencyclidine Screen, Urine Neg (NEGATIVE)
[2024-11-20 14:00] LABS: COVID19 ANTIGEN SOFIA FIA NEGATIVE (NEGATIVE)
--- NOTE | 2024-11-20 14:28 | DVHINCON2 ---
GI Consult Consult Note GI consult note Date of Consultation: 11/20/2024 Chief Complaint: Diarrhea, history of colon cancer Referring Physician: Dr. Dos Santos H&P: 74-year-old male admitted with complains of diarrhea and watery stool, on and off for the past two months. Patient has history of colon cancer diagnosed in [address] bag in place. Usually empties bag 1-2 times only, and now has to empty his colostomy bag up to 3-4 times every day. No melena or red blood in stool. Slight nausea and vomiting, none now. No complains of hematemesis. Patient denies recent antibiotic use. No recent travels. No fevers or chills. Denies abdominal pain. Unsure about oncologist that he sees and last colonoscopy Stool for WBC and stool occult blood is negative Past Medical History: Diabetes mellitus, hypertension, hypercholesterolemia Past Surgical History: Colectomy due to colon cancer with colostomy bag in place, inguinal hernia surgery Social History: NO smoking, drinking ETOH and use of illegal drugs. Family History: Noncontributory Review of Systems: Constitutional: no fever, chill, weight loss HEENT: no eye pain, no hearing loss, no oral lesion, no scleral icterus Heart: no chest pain, no chest pressure Lung: no cough, no dyspnea with exertion Abdomen: see HPI Physical exam: General: NAD, AAOX3 Chest: lung borrero clear to auscultation Heart: RRR, no murmur Abdomen: non-distended, no tenderness to palpation, +BS, colostomy bag in place Labs:Labs Test 11/19/24 18:07 Range/Units White Blood Count 13.5 H 4.4-10.8 10^3/uL Red Blood Count 4.92 4.5-5.90 10^6/uL Hemoglobin 14.5 13.5-17.5 g/dL Hematocrit 43.8 41.0-53.0 % Mean Corpuscular Volume 89.0 80.0-100.0 fL Mean Corpuscular Hemoglobin 29.5 28.0-32.0 pg Mean Corpuscular Hemoglobin Concent 33.2 32.0-36.0 g/dL Red Cell Distribution Width 15.7 H 11.8-14.3 % Platelet Count 351 140-450 10^3/uL Mean Platelet Volume 7.5 6.9-10.8 fL Neutrophils (%) (Auto) 82.6 H 37.0-80.0 % Lymphocytes (%) (Auto) 9.8 L 10.0-50.0 % Monocytes (%) (Auto) 6.5 0.0-12.0 % Eosinophils (%) (Auto) 0.9 0.0-7.0 % Basophils (%) (Auto) 0.2 0.0-2.0 % Neutrophils # (Auto) 11.2 H 1.6-8.6 10 ^3/uL Lymphocytes # (Auto) 1.3 0.4-5.4 10 ^3/uL Monocytes # (Auto) 0.9 0-1.3 10 ^3/uL Eosinophils # (Auto) 0.1 0-0.8 10 ^3/uL Basophils # (Auto) 0 0-0.2 10 ^3/uL Nucleated Red Blood Cells 0.0 % Sodium Level 131 L 136-145 mmol/L Potassium Level 5.4 H 3.5-5.1 mmol/L Chloride Level 102 98-107 mmol/L Carbon Dioxide Level 14 L 20-31 mmol/L Anion Gap 15 5-15 Blood Urea Nitrogen 44 H 9-23 mg/dL Creatinine 3.82 H 0.700-1.30 mg/dL Glomerular Filtration Rate Calc 16 >90 mL/min BUN/Creatinine Ratio 11.5 10.0-20.0 Serum Glucose 140 H 74-106 mg/dL Calcium Level 10.0 8.7-10.4 mg/dL Imaging: CT abdomen pelvis IMPRESSION: 1. Small hiatal hernia 2. 5.8 cm left renal cyst unchanged Assessment: Diarrhea History of colon cancer with colostomy bag NEGRITA Plan: Discussed with Dr. Smith Stool for C diff and O and P pending P.o. Flagyl Diet as tolerated We will continue to monitor patient Discussed plan with patient and RN Thank you for this consult Date of Service: Nov 20, 2024 Billing Provider: ANA LUISA SANTANA Common Visit Codes: CONSULT ONLY Consultation Codes: 58915-[id number] CONSULT <60MIN ANA LUISA SANTANA Nov 20, 2024 14:28
[2024-11-20 14:40] VITALS: BP 107/62; PULSE 69; RESP 17; TEMP 98.1; O2SAT 97
[2024-11-20 15:49] VITALS: BP 107/62; PULSE 69; RESP 17; TEMP 98.1; O2SAT 97
--- NOTE | 2024-11-20 16:44 | DVHINCON2 ---
Date of service: Nov 20, 2024 Reason for Consultation NEGRITA History of Present Illness 74-year-old male past medical history of diabetes, hypertension, colon cancer recently hospitalized in this hospital for volume depletion setting of nausea vomiting diarrhea had severe NEGRITA which resolved improve fluids. Ne ent's GFR was approximately 50% at discharge this was approximately September of this year. Patient returns to the hospital now with similar symptoms. Now has severe NEGRITA creatinine greater than four. Nephrology consulted Past Medical History dm2, htn, colon CA Allergies: Coded Allergies: NO KNOWN ALLERGIES (Unverified , 04/06/18) Home Meds Reported Medications Clopidogrel Bisulfate (CLOPIDOGREL) 75 Mg Tab, 1 TAB PO DAILY 10/14/24 Sucralfate (Sucralfate) 1 Gm Tab, 1 TAB PO 10/14/24 Metformin Hydrochloride (Metformin Hcl) 1,000 Mg Tab, 1 TAB PO BID 10/14/24 Pantoprazole Sodium Sesquihydr (Pantoprazole Sodium) 40 Mg Tab, 1 TAB PO BID 10/14/24 Metoprolol Tartrate (Lopressor) 25 Mg Tb, 1 TAB PO BID 10/14/24 Memantine Hydrochloride (Memantine HCl) 10 Mg Tab, 1 TAB PO BID 10/14/24 Donepezil Hydrochloride (DONEPEZIL HCL) 10 Mg Tab, 1 TAB PO 10/14/24 Simvastatin (Simvastatin) 20 Mg Tab, 1 TAB PO 10/14/24 Famotidine (Famotidine) 20 Mg Tab, 1 TAB PO BID 10/14/24 Atorvastatin Calcium (ATORVASTATIN CALCIUM) 80 Mg Tab, 1 TAB PO DAILY 10/14/24 Current Medications Current Medications Medications (Trade) Dose Ordered Sig/Lilo Route PRN Reason Start Time Stop Time Status Last Admin Ondansetron HCl (Zofran) 4 mg Q4HP PRN IV NAUSEA / VOMITING 11/19/24 22:45 Diagnostic Test (Pha) (Accu-Chek Comfort Curve T) 1 strip Q6HR 11/20/24 06:00 11/20/24 12:28 Insulin Human Regular (InsuLIN R) Q6HR SC 11/20/24 06:00 11/20/24 12:47 Dextrose 50 ml UD PRN IV Blood Sugar LESS THAN 60 11/20/24 02:00 Lactated Ringer's 1,000 ml @ 100 mls/hr Q10H IV 11/20/24 08:00 11/20/24 12:00 DC 11/20/24 08:50 Lactated Ringer's 1,000 ml @ 75 mls/hr [id number] IV 11/20/24 12:00 11/20/24 12:00 Metronidazole (Flagyl Tablet) 500 mg Q8HR PO 11/20/24 22:00 Family History: Cerebrovascular accident (CVA) G8 FATHER, Review of Systems nausea, vomiting , diarrhea H&P Exam Vital Signs/I&O Vital Sign Date Time Temp Pulse Resp B/P (MAP) Pulse Ox O2 Delivery O2 Flow Rate FiO2 11/20/24 15:40 Room Air* 0 21 11/20/24 14:40 98.1 69 17 107/62 (77) 97 98.1 l Intake and Output 11/19/24 11/20/24 19:00 07:00 Intake Total 800 ml Balance 800 ml IV Total 800 ml Physical Exam Elderly male Appears malnourished Not in overt distress Regular rate and rhythm Labs/Diagnostic Data Labs/Diagnostic Data Laboratory Tests Test 11/20/24 13:59 11/20/24 13:25 11/20/24 07:45 11/20/24 05:55 Range/Units Erythrocyte Sedimentation Rate 15 0-20 mm/hr Influenza Type A Antigen Negative Negative Influenza Type B Antigen Negative Negative SARS-CoV-2 Antigen (Rapid) Negative NEGATIVE Urine Color Yellow Yellow Urine Clarity Turbid H Clear Urine pH 5.0 5.0-9.0 Urine Specific [place] 1.009 1.001-1.035 Urine Protein Trace H Negative Urine Ketones Negative Negative Urine Blood 1+ H Negative /uL Urine Nitrite Negative Negative Urine Bilirubin Negative Negative Urine Urobilinogen Normal Negative mg/dL Urine Leukocyte Esterase Negative Negative /uL Urine RBC 1 0 - 3 /hpf Urine Microscopic WBC 2 0-3 /HPF Urine Squamous Epithelial Cells Few <5 /hpf Urine Bacteria Few H None Seen /hpf Urine Hyaline Casts Mod 0 - 2 /lpf Urine Mucus Few None Seen Urine Creatinine 68.69 30.0-125.0 mg/dL Urine Protein/Creatinine Ratio 0.61 Urine Sodium 43 40-220 mmol/L Urine Glucose Normal Normal mg/dL Urine Total Protein 42.0 H 1-14 mg/dL Urine Opiates Screen Neg NEGATIVE Urine Fentanyl Screen Neg NEGATIVE Urine Barbiturates Screen Neg NEGATIVE Urine Phencyclidine Screen Neg NEGATIVE Urine Amphetamines Screen Neg NEGATIVE Urine Benzodiazepines Screen Neg NEGATIVE Urine Cocaine Screen Neg NEGATIVE Urine Cannabinoids Screen Neg NEGATIVE POC Glucose 87 70-106 mg/dl Test 11/20/24 04:41 11/19/24 18:07 11/19/24 07:45 Range/Units White Blood Count 7.9 # 13.5 H 4.4-10.8 10^3/uL Red Blood Count 4.27 L 4.92 4.5-5.90 10^6/uL Hemoglobin 12.7 L 14.5 13.5-17.5 g/dL Hematocrit 39.2 #L 43.8 41.0-53.0 % Mean Corpuscular Volume 91.9 89.0 80.0-100.0 fL Mean Corpuscular Hemoglobin 29.7 29.5 28.0-32.0 pg Mean Corpuscular Hemoglobin Concent 32.3 33.2 32.0-36.0 g/dL Red Cell Distribution Width 15.9 H 15.7 H 11.8-14.3 % Platelet Count 261 351 140-450 10^3/uL Mean Platelet Volume 7.3 7.5 6.9-10.8 fL Neutrophils (%) (Auto) 70.6 82.6 H 37.0-80.0 % Lymphocytes (%) (Auto) 15.6 9.8 L 10.0-50.0 % Monocytes (%) (Auto) 10.5 6.5 0.0-12.0 % Eosinophils (%) (Auto) 2.8 0.9 0.0-7.0 % Basophils (%) (Auto) 0.5 0.2 0.0-2.0 % Neutrophils # (Auto) 5.6 11.2 H 1.6-8.6 10 ^3/uL Lymphocytes # (Auto) 1.2 1.3 0.4-5.4 10 ^3/uL Monocytes # (Auto) 0.8 0.9 0-1.3 10 ^3/uL Eosinophils # (Auto) 0.2 0.1 0-0.8 10 ^3/uL Basophils # (Auto) 0 0 0-0.2 10 ^3/uL Nucleated Red Blood Cells 0.0 0.0 % Sodium Level 133 L 131 L 136-145 mmol/L Potassium Level 4.8 5.4 H 3.5-5.1 mmol/L Chloride Level 108 H 102 98-107 mmol/L Carbon Dioxide Level 13 L 14 L 20-31 mmol/L Anion Gap 12 15 5-15 Blood Urea Nitrogen 44 H 44 H 9-23 mg/dL Creatinine 4.14 H 3.82 H 0.700-1.30 mg/dL Glomerular Filtration Rate Calc 15 16 >90 mL/min BUN/Creatinine Ratio 10.6 11.5 10.0-20.0 Serum Glucose 85 140 H 74-106 mg/dL Hemoglobin A1c 6.9 H <5.7 % A1C Calcium Level 8.4 L 10.0 8.7-10.4 mg/dL Total Bilirubin 0.5 0.2-1.0 mg/dL Aspartate Amino Transferase (AST) 23 13-40 U/L Alanine Aminotransferase (ALT) 24 7-40 U/L Alkaline Phosphatase 111 46-116 U/L Total Protein 6.2 5.7-8.2 g/dL Albumin 4.0 3.2-4.8 g/dL Thyroid Stimulating Hormone (TSH) 1.71 0.55-4.78 uIU/mL Stool Occult Blood Negative Negative Stool Occult Blood Sample #3 Negative Stool for White Cells None seen Assessment 74-year-old male past medical history of colon cancer presents with nausea vomiting diarrhea. He is found to have elevated creatinine level. Nephrology consulted for acute kidney injury. 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
[2024-11-20 16:48] VITALS: BP 106/61; PULSE 59; RESP 17; TEMP 97.4; O2SAT 98
[2024-11-20] MEDS ORDERED: LINA5TAB PO (16:50)
[2024-11-20] MEDS ORDERED: FER325T PO (16:50)
[2024-11-20] MEDS ORDERED: LISI-285 PO (16:50)
[2024-11-20] MEDS: SODIUM BICARB 8.4% 50Meq/50ml SYR Vial IV ONE (17:59)
--- NOTE | 2024-11-20 19:04 | DVHPNRES ---
Progress Note Date Seen: Nov 20, 2024 Resident Creating Document: HONORIO ZAMARRIPA RESIDENT Medical Necessity Reason Pt with a Central, PICC or Fol: No Subjective Review of Systems 74-year-old male with a history of colon cancer and left-sided colostomy bag in place, diabetes mellitus, hypertension, hypercholesterolemia presents to the ER with 2 months' history of watery diarrhea, not mixed with blood, the patient has no recent travel history or sick contacts. The patient started experiencing nausea and vomiting since last 3 days which which lead him to visit the year today. He is experiencing excessive sleepiness, loss of appetite and 10 lb weight loss over the period of last 2 months. He is doing some investigations in the [facility]. The contents of vomitus is recently ingested food, not blood mixed. Patient denies any abdominal pain, fever associated with these symptoms. He does not complain of chest pain, shortness of breath or any other complaints today. 11/20/2024 patient seen at In the ER. Patient still complains of diarrhea, 3-4 times per day for the last 2 months. Patient had vomited twice before coming to the hospital. He states that his colostomy bag contained of dark-colored watery stool, nonbloody. GI consult was placed, and recommended P.o. Flagyl, Diet as tolerated. Nephrology consult was placed, and recommended Avoid hypotension Supportive care Avoid contrast studies and avoid nonsteroidal anti-inflammatory drugs at this time , and Nutritional support. CT shows. Small hiatal hernia, 5.8 cm left renal cyst unchanged, Colostomy left lower anterior abdomen with peristomal herniation unchanged from 10/13/2024. There are no findings to suggest bowel obstruction. Objective vital signs Vital Sign Date Time Temp Pulse Resp B/P (MAP) Pulse Ox O2 Delivery O2 Flow Rate FiO2 11/20/24 16:48 97.4 59 17 106/61 (76) 98 97.4 11/20/24 15:40 Room Air* 0 21 Total Intake and Output 11/19/24 11/19/24 11/20/24 15:00 23:00 07:00 Intake Total 800 ml Balance 800 ml medications Current Medications Medications Dose Ordered Sig/Lilo Route Start Time Stop Time Status Last Admin Dose Admin Ondansetron HCl 4 mg Q4HP PRN IV 11/19/24 22:45 Diagnostic Test (Pha) 1 strip Q6HR 11/20/24 06:00 8/7/25 17:59 1 STRIP Insulin Human Regular Q6HR SC 11/20/24 06:00 11/20/24 12:47 3 UNITS Dextrose 50 ml UD PRN IV 11/20/24 02:00 Lactated Ringer's 1,000 ml @ 75 mls/hr [id number] IV 11/20/24 12:00 11/20/24 12:00 75 MLS/HR Metronidazole 500 mg Q8HR PO 11/20/24 22:00 Examination General: Patient alert and oriented in person, place and time. Patient following commands. HEENT: Normocephalic, atraumatic, moist mucous membranes Respiratory/pulmonary: Clear lungs bilaterally, vesicular murmurs present in almost all lung borrero, no associated crackles or wheezes. Cardiovascular: Normal heart sounds S1 and S2 with no associated murmurs Abdomen: Active bowel sounds, Soft, no distention, no tenderness. Left-sided colostomy bag in place, no signs of infection, ischemia or necrosis. Colostomy appliance intact with moderate amount of liquid stool in the bag. No evidence of leakage or odor. Extremities: There is no peripheral edema present at the lower extremities. Peripheral Pulses: 3+ Radial (R). 3+ Radial (L). 3+ Dorsalis pedis (R). 3+ Dorsalis pedis(L) Skin: No rashes or pruritus, there is no sacral edema present at this time. Neurological: Intact cranial nerves with no focal neurologic deficits laboratory and microbiology Laboratory Tests 11/20/24 04:41 Test 11/20/24 04:41 Range/Units Serum Glucose 85 74-106 mg/dL Microbiology Date/Time Source Procedure Growth Status 11/20/24 07:45 Stool Stool Culture - Preliminary Resulted 11/20/24 07:45 Stool Shiga Toxin I & II - Final Resulted Problem List/Assessment/Plan Problem List/Assessment/Plan # Diarrhea due to C diff/gastroenteritis # status post colectomy with colostomy bag placement due to colon cancer -leukocytosis, WBC 13.5- decreased to 4.8 -stool bacterial culture and C diff toxin sent, pending -IV fluid given -Abdomen pelvis CT: Small hiatal hernia. 5.8 cm left renal cyst unchanged. 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 There are no findings to suggest bowel obstruction. -antibiotics held due to concern for C diff and HUS - GI consulted, recommended P.o. Flagyl, Diet as tolerated. - occult blood, WBC negative # NEGRITA likely due to VMN Creatinine 3.82 increased to 4.14 BUN 44 BUN/creatinine-11 Urinalysis shows negative signs of UTI Stop nephrotoxic drugs from home medications Nephrology consult was placed, and recommended Avoid hypotension Supportive care Avoid contrast studies and avoid nonsteroidal anti-inflammatory drugs at this time , and Nutritional support # Hyperkalemia - resolved # diabetes mellitus HbA1c - 6.9 Moderate insulin sliding scale # hypertension Stop lisinopril due to kidney injury Continue metoprolol tartrate GI prophylaxis: Not indicated DVT prophylaxis: Patient is ambulatory Diet: Cardiac Goals of care discussed with the patient for more than 27 minutes: Full code status Case discussed with Dr. Reynoso Plan discussed with: Patient My Orders My Orders Orders - HONORIO ZAMARRIPA Procedure Category Date Status Time Ova & Parasite Exam JUSTIN 11/20/24 In Process 08:00 Lactated Ringer's PHA 11/20/24 In Process 12:00 Date of Service: Nov 20, 2024 Billing Provider: CHA GONCALVES MD Common Visit Codes: [id number] INP/OBS CARE(HIGH) HONORIO ZAMARRIPA Nov 20, 2024 19:04 CHA GONCALVES MD Dec 01, 2024 03:17
[2024-11-20 21:00] VITALS: BP 110/66; PULSE 72; RESP 19; TEMP 98; O2SAT 99
[2024-11-20] MEDS: metroNIDAZOLE 500 MG TAB PO SCH (22:16)
[2024-11-21 01:00] VITALS: BP 97/52; PULSE 70; RESP 19; TEMP 98.1; O2SAT 99
[2024-11-21 04:42] VITALS: BP 88/52; PULSE 75; RESP 20; TEMP 98; O2SAT 99
[2024-11-21 05:53] VITALS: BP 118/50; PULSE 65
[2024-11-21 06:14] LABS: Hematocrit 35.2 % (41.0-53.0); Hemoglobin 12.1 g/dL (13.5-17.5); Mean Corpuscular Hemoglobin 30.1 pg (28.0-32.0); Mean Corpuscular Volume 87.4 fL (80.0-100.0); Nucleated Red Blood Cells % 0.1 %
[2024-11-21 06:18] LABS: Potassium 3.7 mmol/L (3.5-5.1); Sodium 139 mmol/L (136-145)
[2024-11-21 06:19] LABS: Anion Gap 11 (5-15); Calcium 8.9 mg/dL (8.7-10.4); Carbon Dioxide 20 mmol/L (20-31)
[2024-11-21 06:24] LABS: BUN/Creatinine Ratio 19.2 (10.0-20.0); Glucose 98 mg/dL (74-106)
[2024-11-21 06:26] LABS: Blood Urea Nitrogen 39 mg/dL (9-23); Chloride 108 mmol/L (98-107)
[2024-11-21] MEDS: cefTRIAXone 1GM/50ML D5W 50 ML IV SCH (08:44)
[2024-11-21 09:00] VITALS: BP 98/61; PULSE 71; RESP 17; TEMP 97.7; O2SAT 98
[2024-11-21 09:54] VITALS: BP 98/61; PULSE 71; RESP 17; TEMP 97.7; O2SAT 98
[2024-11-21 10:18] LABS: Hepatitis B Surface Antigen Negative (Negative); Hepatitis C Antibody Negative (Negative)
--- NOTE | 2024-11-21 10:30 | DVHPNRES ---
Progress Note Date Seen: Nov 21, 2024 Resident Creating Document: HONORIO ZAMARRIPA RESIDENT Medical Necessity Reason Pt with a Central, PICC or Fol: No Subjective Review of Systems 74-year-old male with a history of colon cancer and left-sided colostomy bag in place, diabetes mellitus, hypertension, hypercholesterolemia presents to the ER with 2 months' history of watery diarrhea, not mixed with blood, the patient has no recent travel history or sick contacts. The patient started experiencing nausea and vomiting since last 3 days which which lead him to visit the year today. He is experiencing excessive sleepiness, loss of appetite and 10 lb weight loss over the period of last 2 months. He is doing some investigations in the [facility]. The contents of vomitus is recently ingested food, not blood mixed. Patient denies any abdominal pain, fever associated with these symptoms. He does not complain of chest pain, shortness of breath or any other complaints today. 11/20/2024 patient seen at In the ER. Patient still complains of diarrhea, 3-4 times per day for the last 2 months. Patient had vomited twice before coming to the hospital. He states that his colostomy bag contained of dark-colored watery stool, nonbloody. GI consult was placed, and recommended P.o. Flagyl, Diet as tolerated. Nephrology consult was placed, and recommended Avoid hypotension Supportive care Avoid contrast studies and avoid nonsteroidal anti-inflammatory drugs at this time , and Nutritional support. CT shows. Small hiatal hernia, 5.8 cm left renal cyst unchanged, Colostomy left lower anterior abdomen with peristomal herniation unchanged from 10/13/2024. There are no findings to suggest bowel obstruction. 11/21/2024 Patient seen in at bedside. Patient still complains of diarrhea and has emptied his colostomy bag in this morning with brownish watery stool. Patient states that he feels better than yesterday, denies any vomiting, nausea, dizziness. C diff results are negative, stool cultures are negative. Added ceftriaxone IV. Objective vital signs Vital Sign Date Time Temp Pulse Resp B/P (MAP) Pulse Ox O2 Delivery O2 Flow Rate FiO2 11/21/24 09:00 97.7 71 17 98/61 (73) 98 97.7 11/21/24 08:00 Room Air* 0 21 Total Intake and Output 11/20/24 11/20/24 11/21/24 15:00 23:00 07:00 Intake Total 812.5 ml 640 ml 630 ml Output Total 425 ml 100 ml 950 ml Balance 387.5 ml 540 ml -320 ml medications Current Medications Medications Dose Ordered Sig/Lilo Route Start Time Stop Time Status Last Admin Dose Admin Ondansetron HCl 4 mg Q4HP PRN IV 11/19/24 22:45 Diagnostic Test (Pha) 1 strip Q6HR 11/20/24 06:00 11/21/24 05:42 1 STRIP Insulin Human Regular Q6HR SC 11/20/24 06:00 11/20/24 12:47 3 UNITS Dextrose 50 ml UD PRN IV 11/20/24 02:00 Lactated Ringer's 1,000 ml @ 75 mls/hr [id number] IV 11/20/24 12:00 11/20/24 22:17 75 MLS/HR Metronidazole 500 mg Q8HR PO 11/20/24 22:00 11/21/24 05:42 500 MG Ceftriaxone Sodium 50 ml @ 100 mls/hr DAILY@09 IV 11/21/24 09:00 11/21/24 08:44 100 MLS/HR Examination General: Patient alert and oriented in person, place and time. Patient following commands. HEENT: Normocephalic, atraumatic, moist mucous membranes Respiratory/pulmonary: Clear lungs bilaterally, vesicular murmurs present in almost all lung borrero, no associated crackles or wheezes. Cardiovascular: Normal heart sounds S1 and S2 with no associated murmurs Abdomen: Active bowel sounds, Soft, no distention, no tenderness. Left-sided colostomy bag in place, no signs of infection, ischemia or necrosis. Colostomy appliance intact with moderate amount of liquid stool in the bag. No evidence of leakage or odor. Extremities: There is no peripheral edema present at the lower extremities. Peripheral Pulses: 3+ Radial (R). 3+ Radial (L). 3+ Dorsalis pedis (R). 3+ Dorsalis pedis(L) Skin: No rashes or pruritus, there is no sacral edema present at this time. Neurological: Intact cranial nerves with no focal neurologic deficits laboratory and microbiology Laboratory Tests 11/21/24 05:00 Test 11/21/24 05:00 Range/Units Serum Glucose 98 74-106 mg/dL Microbiology Date/Time Source Procedure Growth Status 11/20/24 07:45 Stool Stool Culture - Preliminary Resulted 11/20/24 07:45 Stool Shiga Toxin I & II - Final Resulted Problem List/Assessment/Plan Problem List/Assessment/Plan # Diarrhea due to C diff/gastroenteritis # status post colectomy with colostomy bag placement due to colon cancer -leukocytosis, WBC 13.5- decreased to 4.8 -stool bacterial culture and C diff toxin sent, pending -IV fluid given -Abdomen pelvis CT: Small hiatal hernia. 5.8 cm left renal cyst unchanged. 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 There are no findings to suggest bowel obstruction. -antibiotics held due to concern for C diff and HUS - GI consulted, recommended P.o. Flagyl, Diet as tolerated. - occult blood, WBC negative - stool cultures, C diff negative - added ceftriaxone IV # NEGRITA likely due to VMN Creatinine 3.82 increased to 4.14 BUN 44 BUN/creatinine-11 Urinalysis shows negative signs of UTI Stop nephrotoxic drugs from home medications Nephrology consult was placed, and recommended Avoid hypotension Supportive care Avoid contrast studies and avoid nonsteroidal anti-inflammatory drugs at this time , and Nutritional support # Hyperkalemia - resolved # diabetes mellitus HbA1c - 6.9 Moderate insulin sliding scale # hypertension Stop lisinopril due to kidney injury Continue metoprolol tartrate GI prophylaxis: Not indicated DVT prophylaxis: Patient is ambulatory Diet: Cardiac Goals of care discussed with the patient for more than 27 minutes: Full code status Case discussed with Dr. Reynoso My Orders My Orders Orders - HONORIO ZAMARRIPA Procedure Category Date Status Time Lactated Ringer's PHA 11/20/24 In Process 12:00 Ceftriaxone 1gm/50ml PHA 11/21/24 In Process D5w (Rocephin) 09:00 HONORIO ZAMARRIPA Nov 21, 2024 10:30
--- NOTE | 2024-11-21 11:09 | DVHPN2 ---
Progress Note - Dictate Date Seen: Nov 21, 2024 Medical Necessity Reason Pt with a Central, PICC or Fol: No Subjective Patient is resting comfortably feels better Six bowel movements recorded, no bleeding Patient has a left lower quadrant colostomy Stool for WBC and occult blood was negative Stool for C diff and bacterial culture results were negative Renal function improving with hydration vital signs Vital Sign Date Time Temp Pulse Resp B/P (MAP) Pulse Ox O2 Delivery O2 Flow Rate FiO2 11/21/24 09:00 97.7 71 17 98/61 (73) 98 97.7 11/21/24 08:00 Room Air* 0 21 Total Intake and Output 11/20/24 11/20/24 11/21/24 15:00 23:00 07:00 Intake Total 812.5 ml 640 ml 630 ml Output Total 425 ml 100 ml 950 ml Balance 387.5 ml 540 ml -320 ml medications Current Medications Medications Dose Ordered Sig/Lilo Route Start Time Stop Time Status Last Admin Dose Admin Ondansetron HCl 4 mg Q4HP PRN IV 11/19/24 22:45 Diagnostic Test (Pha) 1 strip Q6HR 11/20/24 06:00 11/21/24 05:42 1 STRIP Insulin Human Regular Q6HR SC 11/20/24 06:00 11/20/24 12:47 3 UNITS Dextrose 50 ml UD PRN IV 11/20/24 02:00 Lactated Ringer's 1,000 ml @ 75 mls/hr [id number] IV 11/20/24 12:00 11/20/24 22:17 75 MLS/HR Metronidazole 500 mg Q8HR PO 11/20/24 22:00 11/21/24 05:42 500 MG Ceftriaxone Sodium 50 ml @ 100 mls/hr DAILY@09 IV 11/21/24 09:00 11/21/24 08:44 100 MLS/HR objective General: NAD, AAOX3 Chest: lung borrero clear to auscultation Heart: RRR, no murmur Abdomen: non-distended, no tenderness to palpation, +BS, colostomy bag in place laboratory and microbiology Laboratory Tests 11/21/24 05:00 Test 11/21/24 05:00 Range/Units Serum Glucose 98 74-106 mg/dL Problems(with codes): (1) Acute abdominal pain (2) Diarrhea (3) Hypotension, unspecified (4) Generalized weakness (5) Acute renal failure Prognosis Plan Patient does not appear to have infectious or inflammatory colitis at this time He may either have viral gastroenteritis medication effect I will put him on Questran 4 g packet p.o. daily Imodium as needed for diarrhea Protonix 40 mg p.o. daily Outpatient follow up with GI Services to discuss elective panendoscopy Plan discussed with: Patient, Other (Autumn Chavira) LYNDSEY STEVENS MD Nov 21, 2024 11:09
[2024-11-21] MEDS ORDERED: LOPERAMIDE HCL 2 MG CAP/TAB PO PRN (11:15)
--- NOTE | 2024-11-21 12:21 | DVHPN2 ---
Progress Note Date Seen: Nov 21, 2024 Medical Necessity Reason Pt with a Central, PICC or Fol: No Subjective Patient reports: Feels better Objective vital signs Vital Sign Date Time Temp Pulse Resp B/P (MAP) Pulse Ox O2 Delivery O2 Flow Rate FiO2 11/21/24 09:00 97.7 71 17 98/61 (73) 98 97.7 11/21/24 08:00 Room Air* 0 21 Total Intake and Output 11/20/24 11/20/24 11/21/24 15:00 23:00 07:00 Intake Total 812.5 ml 640 ml 630 ml Output Total 425 ml 100 ml 950 ml Balance 387.5 ml 540 ml -320 ml medications Current Medications Medications Dose Ordered Sig/Lilo Route Start Time Stop Time Status Last Admin Dose Admin Ondansetron HCl 4 mg Q4HP PRN IV 11/19/24 22:45 Diagnostic Test (Pha) 1 strip Q6HR 11/20/24 06:00 11/21/24 11:56 1 STRIP Insulin Human Regular Q6HR SC 11/20/24 06:00 11/21/24 11:56 3 UNITS Dextrose 50 ml UD PRN IV 11/20/24 02:00 Lactated Ringer's 1,000 ml @ 75 mls/hr [id number] IV 11/20/24 12:00 11/20/24 22:17 75 MLS/HR Metronidazole 500 mg Q8HR PO 11/20/24 22:00 11/21/24 05:42 500 MG Ceftriaxone Sodium 50 ml @ 100 mls/hr DAILY@09 IV 11/21/24 09:00 11/21/24 08:44 100 MLS/HR Saccharomyces Boulardii 250 mg DAILY PO 11/22/24 10:00 Cholestyramine Resin 4 gm DAILY@11 PO 11/22/24 11:00 Loperamide HCl 2 mg PRN PRN PO 11/21/24 11:15 Examination: GENERAL:Normal, CVS:Normal laboratory and microbiology Laboratory Tests 11/21/24 05:00 Test 11/21/24 05:00 Range/Units Serum Glucose 98 74-106 mg/dL Microbiology Date/Time Source Procedure Growth Status 11/20/24 07:45 Stool Stool Culture - Preliminary Resulted 11/20/24 07:45 Stool Shiga Toxin I & II - Final Resulted Problem List/Assessment/Plan Problem List/Assessment/Plan 74-year-old male past medical history of colon cancer presents with nausea vomiting diarrhea. He is found to have elevated creatinine level. Nephrology consulted for acute kidney injury. Similar presentation approximately two months ago of volume depletion from diarrhea and post IV fluid treatment hydration GFR improved to approximately 50% Acute kidney injury hemodynamically mediated prerenal in the setting of volume depletion from gastrointestinal losses Chronic kidney disease 2/3 Colon cancer Nausea vomiting Hyperkalemia Continue IVF, alexandr improving Replace electrolytes Avoid hypotension Supportive care Avoid contrast studies and avoid nonsteroidal anti-inflammatory drugs at this time Nutritional support Rest of care as per primary medical team Plan discussed with: Patient My Orders My Orders Orders - PATRICIA LOERA MD Procedure Category Date Status Time Basic Metabolic Panel LAB 11/22/24 Verified 04:00 PATRICIA LOERA MD Nov 21, 2024 12:21
[2024-11-21 13:00] VITALS: BP 120/71; PULSE 72; RESP 17; TEMP 98.9; O2SAT 98
[2024-11-21] MEDS ORDERED: LOPE2CAP16 PO (14:12)
[2024-11-21] MEDS ORDERED: CHOL4POW33 PO (14:12)
--- NOTE | 2024-11-21 14:53 | DVHDSRES ---
Discharge Summary Date of Admission Resident Creating Document: HONORIO ZAMARRIPA Nov 19, 2024 at 22:38 Date of Discharge: Nov 21, 2024 Admitting Diagnosis # Diarrhea due to C diff/gastroenteritis Labs/Diagnostic Data: Laboratory Results Test 11/21/24 11:45 11/21/24 05:00 11/20/24 13:59 11/20/24 13:25 POC Glucose 187 mg/dl (70-106) White Blood Count 4.6 10^3/uL (4.4-10.8) Red Blood Count 4.03 10^6/uL (4.5-5.90) Hemoglobin 12.1 g/dL (13.5-17.5) Hematocrit 35.2 % (41.0-53.0) Mean Corpuscular Volume 87.4 fL (80.0-100.0) Mean Corpuscular Hemoglobin 30.1 pg (28.0-32.0) Mean Corpuscular Hemoglobin Concent 34.4 g/dL (32.0-36.0) Red Cell Distribution Width 15.6 % (11.8-14.3) Platelet Count 248 10^3/uL (140-450) Mean Platelet Volume 7.5 fL (6.9-10.8) Neutrophils (%) (Auto) 69.6 % (37.0-80.0) Lymphocytes (%) (Auto) 15.0 % (10.0-50.0) Monocytes (%) (Auto) 9.8 % (0.0-12.0) Eosinophils (%) (Auto) 4.9 % (0.0-7.0) Basophils (%) (Auto) 0.7 % (0.0-2.0) Neutrophils # (Auto) 3.2 10 ^3/uL (1.6-8.6) Lymphocytes # (Auto) 0.7 10 ^3/uL (0.4-5.4) Monocytes # (Auto) 0.5 10 ^3/uL (0-1.3) Eosinophils # (Auto) 0.2 10 ^3/uL (0-0.8) Basophils # (Auto) 0 10 ^3/uL (0-0.2) Nucleated Red Blood Cells 0.1 % Sodium Level 139 mmol/L (136-145) Potassium Level 3.7 mmol/L (3.5-5.1) Chloride Level 108 mmol/L (98-107) Carbon Dioxide Level 20 mmol/L (20-31) Anion Gap 11 (5-15) Blood Urea Nitrogen 39 mg/dL (9-23) Creatinine 2.03 mg/dL (0.700-1.30) Glomerular Filtration Rate Calc 34 mL/min (>90) BUN/Creatinine Ratio 19.2 (10.0-20.0) Serum Glucose 98 mg/dL (74-106) Calcium Level 8.9 mg/dL (8.7-10.4) Phosphorus Level 3.2 mg/dL (2.4-5.1) Hepatitis B Surface Antigen Negative (Negative) Hepatitis C Antibody Negative (Negative) Erythrocyte Sedimentation Rate 15 mm/hr (0-20) Influenza Type A Antigen Negative (Negative) Influenza Type B Antigen Negative (Negative) SARS-CoV-2 Antigen (Rapid) Negative (NEGATIVE) Test 11/20/24 07:45 11/20/24 04:41 11/19/24 07:45 Urine Color Yellow (Yellow) Urine Clarity Turbid (Clear) Urine pH 5.0 (5.0-9.0) Urine Specific [place] 1.009 (1.001-1.035) Urine Protein Trace (Negative) Urine Ketones Negative (Negative) Urine Blood 1+ /uL (Negative) Urine Nitrite Negative (Negative) Urine Bilirubin Negative (Negative) Urine Urobilinogen Normal mg/dL (Negative) Urine Leukocyte Esterase Negative /uL (Negative) Urine RBC 1 /hpf (0 - 3) Urine Microscopic WBC 2 /HPF (0-3) Urine Squamous Epithelial Cells Few /hpf (<5) Urine Bacteria Few /hpf (None Seen) Urine Hyaline Casts Mod /lpf (0 - 2) Urine Mucus Few (None Seen) Urine Creatinine 68.69 mg/dL (30.0-125.0) Urine Protein/Creatinine Ratio 0.61 Urine Sodium 43 mmol/L (40-220) Urine Glucose Normal mg/dL (Normal) Urine Total Protein 42.0 mg/dL (1-14) Urine Opiates Screen Neg (NEGATIVE) Urine Fentanyl Screen Neg (NEGATIVE) Urine Barbiturates Screen Neg (NEGATIVE) Urine Phencyclidine Screen Neg (NEGATIVE) Urine Amphetamines Screen Neg (NEGATIVE) Urine Benzodiazepines Screen Neg (NEGATIVE) Urine Cocaine Screen Neg (NEGATIVE) Urine Cannabinoids Screen Neg (NEGATIVE) Hemoglobin A1c 6.9 % A1C (<5.7) Total Bilirubin 0.5 mg/dL (0.2-1.0) Aspartate Amino Transferase (AST) 23 U/L (13-40) Alanine Aminotransferase (ALT) 24 U/L (7-40) Alkaline Phosphatase 111 U/L (46-116) Total Protein 6.2 g/dL (5.7-8.2) Albumin 4.0 g/dL (3.2-4.8) Thyroid Stimulating Hormone (TSH) 1.71 uIU/mL (0.55-4.78) Stool Occult Blood Negative (Negative) Stool Occult Blood Sample #3 (Negative) Stool for White Cells None seen Other Laboratory Tests 11/21/24 05:00 Brief Hx & Hospital Course: 74-year-old male with a history of colon cancer and left-sided colostomy bag in place, diabetes mellitus, hypertension, hypercholesterolemia presents to the ER with 2 months' history of watery diarrhea, not mixed with blood, the patient has no recent travel history or sick contacts. The patient started experiencing nausea and vomiting since last 3 days which which lead him to visit the year today. He is experiencing excessive sleepiness, loss of appetite and 10 lb weight loss over the period of last 2 months. He is doing some investigations in the [facility]. The contents of vomitus is recently ingested food, not blood mixed. Patient denies any abdominal pain, fever associated with these symptoms. He does not complain of chest pain, shortness of breath or any other complaints today. Brief Hospital course: Patient came in with diarrhea possibly due to C diff, gastroenteritis, status post colectomy with colostomy bag placement due to colon cancer, had leukocytosis WBC 13.5 now decreased to 4.6. Stool bacterial culture and C diff cultures were negative. IV fluids were given, on CT abdomen showed Small hiatal hernia. 5.8 cm left renal cyst unchanged. 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 There are no findings to suggest bowel obstruction. GI consult was placed, and recommended P.o. Flagyl, Diet as tolerated. Nephrology consult was placed, and recommended Avoid hypotension Supportive care Avoid contrast studies and avoid nonsteroidal anti- inflammatory drugs at this time , and Nutritional support and Outpatient follow up with GI Services to discuss elective panendoscopy. Patient had NEGRITA likely due to vitamin on arrival creatinine was 3.82 and increased to 4.14 discharge decreased to 2.03. Urinalysis shows negative signs of UTI, stopped nephrotic drugs from home medication. Nephrology consult was placed and recommended to Avoid hypotension, Supportive care, Avoid contrast studies and avoid nonsteroidal anti-inflammatory drugs at this time. Patient had hyperkalemia which has resolved. For patient's diabetes mellitus moderate sliding scale was initiated. Lisinopril was stopped due to kidney injury continue metoprolol tartrate. Patient's symptoms has resolved and patient is stable for discharge, patient understands his discharge plan and need for follow-up with discharge Clinic, his PCP, GI. General: Patient alert and oriented in person, place and time. Patient following commands. HEENT: Normocephalic, atraumatic, moist mucous membranes Respiratory/pulmonary: Clear lungs bilaterally, vesicular murmurs present in almost all lung borrero, no associated crackles or wheezes. Cardiovascular: Normal heart sounds S1 and S2 with no associated murmurs Abdomen: Active bowel sounds, Soft, no distention, no tenderness. Left-sided colostomy bag in place, no signs of infection, ischemia or necrosis. Colostomy appliance intact with moderate amount of liquid stool in the bag. No evidence of leakage or odor. Extremities: There is no peripheral edema present at the lower extremities. Peripheral Pulses: 3+ Radial (R). 3+ Radial (L). 3+ Dorsalis pedis (R). 3+ Dorsalis pedis(L) Skin: No rashes or pruritus, there is no sacral edema present at this time. Neurological: Intact cranial nerves with no focal neurologic deficits Discharge instructions: Patient is to for discharge Clinic, GI, PCP Take cholestyramine for 30 days Take Imodium b.i.d. p.r.n. for 1 week Take cardia, renal diet Operations or Procedures ORDERING PHYSICIAN: MATY DELEON MD PROCEDURE(s): ABPL - CT AB PEL WO CON-NO ORAL OR IV REASON: weakness ORDER NUMBER(s): [id number], ACCESSION NUMBER(s): [id number] Exam: CT CT AB PEL WO CON-NO ORAL OR IV History: weakness Comparison Study: CT CT AB PEL WO CON-NO ORAL OR IV on DOS: 10/13/24 TECHNIQUE: Multidetector CT of the abdomen was performed from lung bases to pubic symphysis. Imaging was performed without IV contrast. Axial, coronal and sagittal multiplanar reformats were obtained from the axial data set by the technologist. Radiation Dose Information: CT Dose: CTDI volume is 5.2 mGy. Dose-length product is 302.95 mGy*cm FINDINGS: Evaluation of solid organs is limited due to lack of intravenous contrast use. Findings: Lung Bases: No acute or significant lung base finding. Normal heart size. No pleural or pericardial effusion. Liver: The liver is normal in size. No focal lesions. Gallbladder and Biliary Tree: Unremarkable Spleen: Unremarkable Pancreas: The pancreas is grossly normal in appearance. Adrenal Glands: Unremarkable Kidneys: Kidneys are grossly normal without calculi or hydronephrosis. 5.8 cm cyst in the left kidney Bladder: Grossly unremarkable for degree of distention. Bowel: The stomach is grossly normal in appearance. Small bowel and colon are normal in caliber and distribution. The appendix is not visualized; however, no secondary findings of acute appendicitis identified. Ascites: Absent Lymphadenopathy: No mesenteric, retroperitoneal or periportal lymphadenopathy. Abdominal Wall and Mesentery: Colostomy noted in the lower left anterior abdominal wall. Correlate clinically. There are no findings to suggest bowel obstruction. This appear to be a peristomal hernia. And bowel. ( Measures 6.7 x 3.4 cm). Vasculature: The visualized abdominal aorta is normal in size and caliber. Evaluation of abdominal and pelvic vessels is limited due to lack of intravenous contrast. Pelvic Organs: Unremarkable Musculoskeletal: No aggressive focal bony lesions, acute fractures or dislocation. Soft tissues: Unremarkable IMPRESSION: 1. Small hiatal hernia 2. 5.8 cm left renal cyst unchanged 3. 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 There are no findings to suggest bowel obstruction. Radiation optimization: All CT scans at this facility use at least one of these dose optimization techniques: automated exposure control mA and/or kV adjustment per patient size (includes targeted exams where dose is matched to clinical indication) or iterative reconstruction. ATED BY: KANIKA DELAROSA Jr., DO DICTATED DATE/TIME: 11/19/242099 Condition at Discharge: Stable Final Diagnosis/Problems List #Acute Gastroenteritis likely etiology infectious # Diarrhea due to C diff- ruled out # status post colectomy with colostomy bag placement due to colon cancer # NEGRITA likely due to [facility] # Hyperkalemia # diabetes mellitus- HbA1c 6.9 # hypertension Discharge Disposition: Home Discharge Instruct/Medications Diet: Consistent carbohydrate, Cardiac 2g Na,low cholest Activity: No Restrictions, As Tolerated Follow Up/Referral: Follow up with [facility] in 1week Medications: Cholesysteramine for 30 days Imodium B.I.D P.r.n Scheduled Atorvastatin Calcium (Atorvastatin Calcium), 1 TAB PO DAILY, (Reported) Cholestyramine (Cholestyramine), 4 GM PO DAILY Clopidogrel Bisulfate (Clopidogrel), 1 TAB PO DAILY, (Reported) Famotidine (Famotidine), 1 TAB PO BID, (Reported) Ferrous Sulfate (Ferrous Sulfate), 325 MG PO DAILY, (Reported) Linagliptin Base (Tradjenta), 5 MG PO DAILY, (Reported) Lisinopril & Hydrochlorothiazi (Lisinopril/Hydrochlorothi), 1 TAB PO DAILY, (Reported) Memantine Hydrochloride (Memantine HCl), 1 TAB PO BID, (Reported) Metformin Hydrochloride (Metformin Hcl), 1 TAB PO BID, (Reported) Metoprolol Tartrate (Lopressor), 1 TAB PO BID, (Reported) Pantoprazole Sodium Sesquihydr (Pantoprazole Sodium), 1 TAB PO BID, (Reported) Scheduled PRN Loperamide Hcl (Imodium), 2 MG PO BIDPRN PRN Miscellaneous Medications Donepezil Hydrochloride (Donepezil Hcl), 1 TAB PO, (Reported) Simvastatin (Simvastatin), 1 TAB PO, (Reported) Sucralfate (Sucralfate), 1 TAB PO, (Reported) Discharge Statement: "Patient was advised to return to the ER or call 911 if any headaches, dizziness, shortness of breath, chest pain, abdominal pain, bleeding, fevers, or worsening of medical condition. Patient was counseled about treatment plan, medications, possible side effects, patientverbalized understanding. All questions were answered to the best of my ability. This discharge took greater then 30 minutes in planning, reviewing documentation, counseling the patient, and discussing with other team members." ASSESSMENT ASSESSMENT Assessment . Acute Gastroenteritis likely etiology infectious HONORIO ZAMARRIPA RESIDENT Nov 21, 2024 14:53
[2024-11-22] MEDS ORDERED: FLORASTOR (S. BOULARDII) 250 MG CAP PO SCH (10:00)
[2024-11-22] MEDS ORDERED: CHOLESTYRAMINE 4 GM POWDER PO SCH (11:00)
== END 2024-11-21 16:14 | disposition home or self-care (01) | DRG 391 ==
LOC: ER 17:17 → EDUNIT# 17:17 → EDBD 17:17 → OVERFLOW 22:38 → CENTRAL 11-20 14:00
PROVIDERS: ADMIT Student in an Organized Health Care Education/Training Program; ATTEND Student in an Organized Health Care Education/Training Program
DX: A09 Infectious gastroenteritis and colitis, unspecified (principal); N17.0 Acute kidney failure with tubular necrosis; E87.5 Hyperkalemia; N18.9 Chronic kidney disease, unspecified; I12.9 Hypertensive chronic kidney disease with stage 1 through stage 4 chronic kidney disease, or unspecified chronic kidney disease; E11.22 Type 2 diabetes mellitus with diabetic chronic kidney disease; E78.00 Pure hypercholesterolemia, unspecified; K44.9 Diaphragmatic hernia without obstruction or gangrene; E86.9 Volume depletion, unspecified; Z79.84 Long term (current) use of oral hypoglycemic drugs; Z79.899 Other long term (current) drug therapy; Z85.038 Personal history of other malignant neoplasm of large intestine; Z93.3 Colostomy status; Z82.3 Family history of stroke
CPT/HCPCS: 36415; 74176; 80048; 80053; 80307; 81001; 82270; 82570; 82962; 83036; 84100; 84156; 84300; 84443; 85025; 85048; 85652; 86803; 87045; 87177; 87340; 87426; 87427; 87493; 87804; G0378; J1815